=== PATIENT | male | born 1950 | race Asian ===

== ENCOUNTER 2019-11-12 15:15 | Outpatient (CLI) | payer MEDICARE, SELFPAY ==
[2019-11-12 16:23] LABS: Basophils Percent Auto 0.5 % (0.2-1.2); Eosinophils Absolute Auto 0.2 K/mm3 (0-0.3); Eosinophils Percent Auto 3.6 % (0-4.4); Hematocrit 42.1 % (42.0-52.0); Hemoglobin 14.3 g/dL (14.0-18.0); Immature Granulocyte Absolute 0.02 K/mm3 (0.00-0.031); Immature Granulocyte Percent A 0.3 % (0-0.5); Lymphocytes Absolute Auto 1.68 K/mm3 (0.9-3.2); Lymphocytes Percent Auto 27.9 % (18.3-44.2); Mean Corpuscular Hemoglobin 30.3 pg (26-34); Mean Corpuscular Volume 89.2 fl (80-100); Mean Platelet Volume 9.6 fl (7.4-10.4); Monocytes Absolute Auto 0.6 K/mm3 (0.1-0.6); Monocytes Percent Auto 9.3 % (2.6-8.5); Neutrophils Absolute Auto 3.5 K/mm3 (1.3-6.7); Neutrophils Percent Auto 58.4 % (45.5-73.1); Platelet Count Result 148 k/mm3 (150-375); Red Blood Count 4.72 M/mm3 (4.6-6.20); Red Cell Distribution Width 13.7 % (11.5-14.5)
[2019-11-12 17:26] LABS: Alanine Aminotransferase 47 U/L (4-50); Albumin Level 4.2 g/dL (3.5-5.1); Alkaline Phosphatase 70 U/L (38-126); Aspartate Amino Transferase 46 U/L (17-59); Bilirubin,Total 0.9 mg/dL (0.2-1.3); Blood Urea Nitrogen 25 mg/dL (9-20); Calcium 8.9 mg/dL (8.4-10.2); Carbon Dioxide 30 mmol/L (22-30); Chloride 104 mmol/L (98-107); Cholesterol 82 mg/dL (0-200); Estimated Glomerular Filt Rate 60; Glucose 117 mg/dL (75-110); HDL Direct 37 mg/dL; Potassium 4.2 mmol/L (3.4-5.0); Sodium 140 mmol/L (137-145); Triglycerides 209 mg/dL (<150)
[2019-11-12 17:34] LABS: Hemoglobin A1C 6.2 % (<5.7)
[2019-11-12 17:52] LABS: LDL Cholesterol Direct < 30 mg/dL
[2019-11-12 17:57] LABS: Prostate Specific Antigen 0.5 ng/mL (< OR = 4.0)
== END 2019-11-12 15:16 | disposition home or self-care (01) ==
PROVIDERS: PCP Family Medicine; Referring Provider Internal Medicine Cardiovascular Disease; Visit Provider Family Medicine
DX: Z12.5 Encounter for screening for malignant neoplasm of prostate (principal); I10 Essential (primary) hypertension; E11.9 Type 2 diabetes mellitus without complications; I25.10 Atherosclerotic heart disease of native coronary artery without angina pectoris; Z79.02 Long term (current) use of antithrombotics/antiplatelets
CPT/HCPCS: 36415; 80053; 80061; 83036; 84153; 85025; G0103

== ENCOUNTER 2020-01-21 09:55 | Outpatient (CLI) | payer MEDICARE, SELFPAY ==
[2020-01-21 10:51] LABS: Basophils Percent Auto 0.5 % (0.2-1.2); Eosinophils Absolute Auto 0.2 K/mm3 (0-0.3); Eosinophils Percent Auto 3.3 % (0-4.4); Hematocrit 42.6 % (42.0-52.0); Hemoglobin 14.3 g/dL (14.0-18.0); Immature Granulocyte Absolute 0.04 K/mm3 (0.00-0.031); Immature Granulocyte Percent A 0.7 % (0-0.5); Lymphocytes Absolute Auto 1.35 K/mm3 (0.9-3.2); Lymphocytes Percent Auto 22.1 % (18.3-44.2); Mean Corpuscular HGB Conc 33.6 g/dl (32-36); Mean Corpuscular Volume 89.3 fl (80-100); Mean Platelet Volume 10.3 fl (7.4-10.4); Monocytes Absolute Auto 0.6 K/mm3 (0.1-0.6); Neutrophils Absolute Auto 3.9 K/mm3 (1.3-6.7); Neutrophils Percent Auto 64.4 % (45.5-73.1); Platelet Count Result 154 k/mm3 (150-375); Red Blood Count 4.77 M/mm3 (4.6-6.20); Red Cell Distribution Width 13.3 % (11.5-14.5); White Blood Count 6.1 K/mm3 (4.5-10.0)
[2020-01-21 11:12] LABS: Anion Gap 6 mmol/L (8-16); Blood Urea Nitrogen 18 mg/dL (9-20); Calcium 8.8 mg/dL (8.4-10.2); Carbon Dioxide 30 mmol/L (22-30); Chloride 105 mmol/L (98-107); Estimated Glomerular Filt Rate > 60; Glucose 86 mg/dL (75-110); Potassium 4.2 mmol/L (3.4-5.0); Sodium 141 mmol/L (137-145)
== END 2020-01-21 09:56 | disposition home or self-care (01) ==
LOC: ANHLAB 09:59
PROVIDERS: PCP Family Medicine
DX: I20.8 Other forms of angina pectoris (principal)
CPT/HCPCS: 36415; 80048; 85025

== ENCOUNTER 2020-07-22 07:06 | Outpatient (CLI) | payer MEDICARE, SELFPAY ==
[2020-07-22 07:30] LABS: Hematocrit 44.8 % (42.0-52.0); Hemoglobin 15.1 g/dL (14.0-18.0); Mean Corpuscular HGB Conc 33.7 g/dl (32-36); Mean Corpuscular Volume 88.9 fl (80-100); Mean Platelet Volume 9.2 fl (7.4-10.4); Platelet Count Result 151 k/mm3 (150-375); Red Blood Count 5.04 M/mm3 (4.6-6.20); Red Cell Distribution Width 13.7 % (11.5-14.5); White Blood Count 6.5 K/mm3 (4.5-10.0)
[2020-07-22 07:38] LABS: Hemoglobin A1C 5.9 % (<5.7)
[2020-07-22 07:41] LABS: Alanine Aminotransferase 47 U/L (4-50); Albumin Level 4.1 g/dL (3.5-5.1); Alkaline Phosphatase 47 U/L (38-126); Anion Gap 5 mmol/L (8-16); Aspartate Amino Transferase 50 U/L (17-59); Bilirubin,Total 1.2 mg/dL (0.2-1.3); Blood Urea Nitrogen 19 mg/dL (9-20); Carbon Dioxide 31 mmol/L (22-30); Chloride 106 mmol/L (98-107); Cholesterol 89 mg/dL (0-200); Estimated Glomerular Filt Rate 60; Glucose 108 mg/dL (75-110); HDL Direct 43 mg/dL; Potassium 4.4 mmol/L (3.4-5.0); Sodium 142 mmol/L (137-145); Triglycerides 118 mg/dL (<150)
[2020-07-22 07:55] LABS: LDL Cholesterol Direct < 30 mg/dL
== END 2020-07-22 07:07 | disposition home or self-care (01) ==
PROVIDERS: PCP Family Medicine; Referring Provider Internal Medicine Cardiovascular Disease; Visit Provider Family Medicine
DX: E78.2 Mixed hyperlipidemia (principal); R53.83 Other fatigue; E11.9 Type 2 diabetes mellitus without complications
CPT/HCPCS: 36415; 80053; 80061; 83036; 85027

== ENCOUNTER 2020-10-11 10:46 | Emergency (ER) | payer MEDICARE, SELFPAY ==
--- NOTE | ~2020-10-11 | CT_ITS ---
EXAMINATION: CT lumbar spine wo con DATE: 10/11/2020 12:02 INDICATION: Low back pain. TECHNIQUE: Computed tomography (CT) of the lumbar spine was performed without intravenous contrast. A utomated exposure control and iterative reconstruction technique were employed. The dose-length produ ct was 413.65 mGy-cm. COMPARISON: CT abdomen and pelvis 12/06/2013 FINDINGS: There is a 2.1 cm mass in right kidney. There is a 2.1 cm cyst in right kidney. There are l east 3 stones in right kidney measuring up to 3 mm. There is 5 degrees levocurvature of lumbar spine. There is 3 mm retrolisthesis of L2 on L3 and 4 mm anterolisthesis of L4 on L5. Vertebral body height s are normal. There is mildly decreased disc height at L3-L4 and L4-L5. The following disc levels are specifically discussed: L1-L2: The disc does not extend beyond the endplate margin. There is mild bilateral facet joint osteo arthritis. There is no neural foraminal stenosis. There is no central canal stenosis. L2-L3: The disc is bulging. There is mild bilateral facet joint osteoarthritis. There is moderate faustino ateral neural foraminal stenosis. There is mild central canal stenosis. L3-L4: The disc is bulging. There is moderate bilateral facet joint osteoarthritis. There is moderate right and mild left neural foraminal stenosis. There is mild central canal stenosis. L4-L5: The disc is bulging. There is severe bilateral facet joint osteoarthritis. There is moderate r ight and severe left neural foraminal stenosis. There is moderate central canal stenosis. L5-S1: The disc does not extend beyond the endplate margin. There is severe bilateral facet joint ost eoarthritis. There is mild bilateral neural foraminal stenosis. There is no central canal stenosis. IMPRESSION: 1. Moderate lumbar spondylosis. 2. 2.1 cm right kidney mass, which may be a neoplasm or hemorrhagic cyst. Abdomen CT without and with contrast is recommended. Reviewed, dictated and finalized at location A. IMPRESSION: 1. Moderate lumbar spondylosis. 2. 2.1 cm right kidney mass, which may be a neoplasm or hemorrhagic cyst. Abdom en CT without and with contrast is recommended.
[2020-10-11 10:52] VITALS: BP 124/74; PULSE 57; RESP 18; TEMP 36.4; O2SAT 100
--- NOTE | 2020-10-11 11:42 | ED.BACK ---
HPI - Back Pain/Injury General Chief Complaint: Back Pain/Injury Stated Complaint: back pain Time Seen by Provider: 10/11/20 11:28 Source: patient Mode of arrival: wheelchair Limitations: no limitations History of Present Illness HPI Narrative: This is a 70 year old male that presents to the ER for low back pain x 1 week. Reports intermittent history of trouble with his low back. Reports he has had a flare of symptoms over this last week. No recent injuries. Reports he felt okay when he woke up today, but he bent over to stretch and felt a sharp pain in his low back. Reports since then he has had a sharp pain in his low back with certain movements. He took Tylenol this morning around 815. This does help with his symptoms. Denies fever, dysuria, hematuria, saddle anesthesia, bowel/bladder incontinence, or weakness. Related Data Home Medications Medication Instructions Recorded Confirmed amlodipine 5 mg tablet 5 mg PO DAILY 07/08/19 07/08/19 aspirin 81 mg tablet,delayed 81 mg PO DAILY 07/08/19 07/08/19 release carvedilol 25 mg tablet 25 mg PO Q12H 07/08/19 07/08/19 olmesartan 5 mg tablet 5 mg PO BID tablet 07/08/19 07/08/19 rosuvastatin 40 mg tablet 40 mg PO DAILY 07/08/19 07/08/19 ticagrelor 90 mg tablet 90 mg PO Q12H 07/08/19 07/08/19 Allergies Allergy/AdvReac Type Severity Reaction Status Date / Time No Known Allergies Allergy Verified 07/29/20 08:51 Review of Systems Review of Systems: Narrative: CONSTITUTIONAL: Denies fever SKIN: Denies rash MUSCULOSKELETAL: Reports back pain, joint pain, and myalgia. NEUROLOGIC: Denies numbness, or weakness. All systems reviewed & are unremarkable except as noted in HPI and below PMFSH Past Medical History Medical History (Updated 10/11/20 @ 14:13 by Sofie Aponte PA-C) Coronary artery disease Hypertension Mixed hyperlipidemia Prediabetes Family History Family History Other Diabetes mellitus Family history of cardiovascular disease Family history of coronary artery disease Hypertension Social History Social History Smoking status: Never smoker Second hand tobacco smoke exposure: No Alcohol intake: current Gender identity (if verbalized by the patient): Male Exam Narrative: Exam Narrative: GENERAL: Well-appearing, well-nourished, and in no acute distress. HEAD: Normocephalic, atraumatic. EYES: EOMI. CHEST: Clear to auscultation. No respiratory distress. No wheezes rales or rhonchi HEART: Regular rate and rhythm. No murmur heard. Normal peripheral pulses. BACK: No midline spinal tenderness EXTREMITIES: Normal range of motion. No edema. Strength equal in bilateral lower extremities (5/5). Normal DP pulses. Normal sensation SKIN: Warm, dry, no rash. NEURO: No focal deficits. Alert and oriented x3. PSYCH: Normal mood and affect Course Consultations Consultation #1: Incidentally noted on CT scan was a 2.1 cm right kidney mass which could be neoplasm or hemorrhagic cyst recommend follow-up with a CT abdomen with and without contrast. Spoke with his primary to make her aware of this to ensure he has follow-up Date: 10/11/20 Time: 14:12 Vital Signs Vital signs: Vital Signs Temperature 97.6 F 10/11/20 10:52 Pulse Rate 57 L 10/11/20 10:52 Respiratory Rate 18 10/11/20 10:52 Blood Pressure 124/74 10/11/20 10:52 Pulse Oximetry 100 10/11/20 10:52 Temperature 97.6 F 10/11/20 10:52 Pulse Rate 51 L 10/11/20 13:52 Respiratory Rate 12 10/11/20 13:52 Blood Pressure 138/76 10/11/20 13:52 Pulse Oximetry 98 10/11/20 13:52 MDM - Back Pain/Injury MDM Narrative Medical decision making narrative: Patient presented to the emergency department for low back pain since this morning. No recent injury or trauma. He is afebrile and nontoxic-appearing. He is neurologically intact. CT scan of the lumbar
[2020-10-11] MEDS: diazePAM INJ (*CRX) 10 MG/2 ML SYRINGE 2 MG IM (12:14)
[2020-10-11 13:52] VITALS: BP 138/76; PULSE 51; RESP 12; O2SAT 98
[2020-10-11] MEDS: ACETAMINOPHEN 500 MG TABLET 1000 MG PO (14:15)
== END 2020-10-11 14:43 | disposition home or self-care (01) ==
PROVIDERS: Emergency Provider Emergency Medicine; PCP Family Medicine
DX: S39.012A Strain of muscle, fascia and tendon of lower back, initial encounter (principal); N28.89 Other specified disorders of kidney and ureter; I25.10 Atherosclerotic heart disease of native coronary artery without angina pectoris; I10 Essential (primary) hypertension; E78.2 Mixed hyperlipidemia; R73.03 Prediabetes; Z79.82 Long term (current) use of aspirin; X50.1XXA Overexertion from prolonged static or awkward postures, initial encounter
CPT/HCPCS: 72131; 96372; 99284; A9270; J3360

== ENCOUNTER 2020-10-16 10:16 | Outpatient (CLI) | payer MEDICARE, SELFPAY ==
--- NOTE | ~2020-10-16 | CT_ITS ---
EXAMINATION: CT abdomen wo/w con EXAM DATE: 10/16/2020 10:47 INDICATION: N28.89 - Other specified disorders of kidney and ureter. Renal mass. TECHNIQUE: Spiral CT of the abdomen was performed without and then with intravenous injection of 100 mL Omnipaque 350. Axial, coronal and sagittal images of the abdomen were reviewed. The dose-length product (DLP) for this examination was 475.51 mGy-cm. The exposure was tailored according to patien t size (auto mA exposure control), and iterative reconstruction (ASIR) was used as additional dose re duction technique. Comparison is made to prior examination from 12/06/2013. FINDINGS: There is enhancing bilobulated mass at the superior pole of the right kidney, one lobulatio n demonstrating a cystic component and the other solid enhancing component. 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 No evidence of this mass on prior CT abdomen 2013. The liver, splee n, adrenal glands and pancreas are unremarkable. There are gallstones within an otherwise unremarkab le gallbladder. No evidence of obstructive biliary disease. Several punctate bilateral calyceal sto tory. No proximal ureteral stones or hydronephrosis. There is no retroperitoneal lymphadenopathy. Th ere is moderate scattered arteriosclerotic disease. There is mild scattered colonic diverticulosis. There is no adjacent inflammatory change to suggest diverticulitis. The stomach and small bowel are unremarkable. There is expected amount of colonic st ool. No free intraperitoneal gas. The heart is normal in size. There are no pericardial or pleur al effusions. The lung bases are unremarkable. There are no osteoblastic or osteolytic lesions iden tified. IMPRESSION: 1. 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 2. Punctate bilateral nephrolithiasis. 3. Scattered colonic diverticulosis. Reviewed, dictated and finalized at location B.
[2020-10-16 10:41] LABS: Estimated Glomerular Filt Rate 54
== END 2020-10-16 10:17 | disposition home or self-care (01) ==
PROVIDERS: PCP Family Medicine; Visit Provider Family Medicine
DX: N28.89 Other specified disorders of kidney and ureter (principal); N20.0 Calculus of kidney; K57.30 Diverticulosis of large intestine without perforation or abscess without bleeding
CPT/HCPCS: 74170; Q9967

== ENCOUNTER 2020-11-13 08:11 | Outpatient (CLI) | payer MEDICARE, SELFPAY ==
[2020-11-13 10:09] LABS: Prostate Specific Antigen 0.7 ng/mL (< OR = 4.0)
== END 2020-11-13 08:12 | disposition home or self-care (01) ==
PROVIDERS: PCP Family Medicine
DX: Z12.5 Encounter for screening for malignant neoplasm of prostate (principal)
CPT/HCPCS: 36415; 84153; G0103

== ENCOUNTER 2021-02-20 14:07 | Emergency (ER) | payer MEDICARE, SELFPAY ==
[2021-02-20] VITALS (19 sets, daily range): BP systolic 120–145; BP diastolic 72–96; PULSE 65–80; RESP 14–35; TEMP 36.6; O2SAT 97–100
--- NOTE | ~2021-02-20 | XR_ITS ---
EXAMINATION: XR chest 2V DATE: 02/20/2021 14:39 INDICATION: Weakness TECHNIQUE: frontal and lateral views of the chest were obtained. COMPARISON: Chest radiograph dated 04/20/18 FINDINGS: The lungs remain clear with no focal airspace opacities, pulmonary edema, pleural effusion or pneumot horax. The cardiomediastinal silhouette is normal. Median sternotomy wires and mediastinal surgical c lips are seen, likely from prior coronary artery bypass grafting. There is also been coronary artery stenting. Calcified gallstones in the right upper quadrant. IMPRESSION: 1. No acute cardiopulmonary disease. 2. Cholelithiasis. Reviewed, dictated and finalized at location A.
--- NOTE | ~2021-02-20 | CT_ITS ---
EXAMINATION: CT abdomen pelvis w con DATE: 02/20/2021 18:25 INDICATION: Generalized weakness post right nephrectomy one week prior TECHNIQUE: Computed tomography (CT) of the abdomen and pelvis was performed with 100 mL Omnipaque-350 intravenous contrast. Automated exposure control and iterative reconstruction technique were employe d. The dose-length product was 311.81 mGy-cm. COMPARISON: 10/16/2020 and 12/06/2013 FINDINGS: Mild bibasilar atelectasis. Heart size is normal with right atrial enlargement. Atherosclerotic coron everette artery disease with likely stenting at the right coronary and circumflex coronary arteries. Media n sternotomy wires suggesting likely coronary artery bypass grafting. No pericardial or pleural effus ion. 1.8 cm avidly enhancing lesion in segment IVb of the liver corresponding to a low density lesion on an earlier noncontrast study dated 12/06/2013 most consistent with a flash filling hemangioma. Mul tiple calcified gallstones in the dependent aspect of the normal partially decompressed gallbladder. Spleen, pancreas and bilateral adrenal glands are normal. Postoperative change of recent partial righ t nephrectomy with cortical defect and suture line at the upper pole of the right kidney. There is a heterogeneous attenuation likely hematoma which at the nephrectomy bed measures approximately 5.8 x 5 .5 x 6.3 cm. There is additional small amount of blood tracking caudally along the posterior right pe rinephric space where there are also few foci of likely residual postoperative gas and small amount o f blood at the inferior right paracolic gutter. 2.4 cm cyst at the lower pole of the right kidney. 1 mm nonobstructing stone at a middle calyx of the normal left kidney. There is mild to moderate coloni c diverticulosis with a sigmoid and descending colon predominance. There is no adjacent inflammatory change to suggest diverticulitis. Small bowel and appendix are normal. Bladder is normal. There are some postoperative changes along the anterior abdominal wall. No pathologically enlarged abdominal or pelvic lymphadenopathy. Moderate lumbar spondylosis. IMPRESSION: 1. Postoperative changes of recent partial nephrectomy involving the upper pole of the right kidney w ith associated moderate sized right perinephric/retroperitoneal hematoma. 2. Nonobstructing 1 mm left renal stone. 3. Mild to moderate diverticulosis. Reviewed, dictated and finalized at location A. IMPRESSION: 1. Postoperative changes of recent partial nephrectomy involving the upper pole of the right kidney with associated moderate sized right perinephric/retroperi toneal hematoma. 2. Nonobstructing 1 mm left renal stone. 3. Mild to moderate diverticulosis.
--- NOTE | 2021-02-20 14:26 | ECG_ITS ---
Measurements Intervals [place] Rate: 61 P: 74 WI: 170 QRS: 32 QRSD: 101 T: 44 QT: 419 QTc: 423 Interpretive Statements SINUS RHYTHM POSSIBLE LEFT ATRIAL ENLARGEMENT INCOMPLETE RIGHT BUNDLE BRANCH BLOCK BASELINE ARTIFACT- V2 BORDERLINE ECG Electronically Signed On 02-20-2021 15:11:24 CDT by William Osorio D.O.
[2021-02-20 15:19] LABS: Basophils Percent Auto 0.3 % (0.2-1.2); Eosinophils Absolute Auto 0.4 K/mm3 (0-0.3); Hematocrit 33.9 % (42.0-52.0); Hemoglobin 11.4 g/dL (14.0-18.0); Immature Granulocyte Percent A 2.2 % (0-0.5); Lymphocytes Absolute Auto 0.95 K/mm3 (0.9-3.2); Lymphocytes Percent Auto 10.5 % (18.3-44.2); Mean Corpuscular HGB Conc 33.6 g/dl (32-36); Mean Corpuscular Hemoglobin 30.2 pg (26-34); Mean Corpuscular Volume 89.7 fl (80-100); Mean Platelet Volume 8.6 fl (7.4-10.4); Monocytes Absolute Auto 0.8 K/mm3 (0.1-0.6); Monocytes Percent Auto 9.2 % (2.6-8.5); Neutrophils Absolute Auto 6.7 K/mm3 (1.3-6.7); Neutrophils Percent Auto 73.8 % (45.5-73.1); Platelet Count Result 237 k/mm3 (150-375); Red Blood Count 3.78 M/mm3 (4.6-6.20); Red Cell Distribution Width 12.7 % (11.5-14.5)
[2021-02-20 15:26] LABS: Alanine Aminotransferase 45 U/L (4-50); Alkaline Phosphatase 55 U/L (38-126); Anion Gap 6 mmol/L (8-16); Aspartate Amino Transferase 49 U/L (17-59); Bilirubin,Total 2.1 mg/dL (0.2-1.3); Blood Urea Nitrogen 42 mg/dL (9-20); Calcium 8.8 mg/dL (8.4-10.2); Carbon Dioxide 30 mmol/L (22-30); Chloride 101 mmol/L (98-107); Estimated Glomerular Filt Rate 54; Glucose 126 mg/dL (65-110); Potassium 4.8 mmol/L (3.4-5.0); Sodium 137 mmol/L (137-145)
--- NOTE | 2021-02-20 15:49 | ED.WEAKNESS ---
HPI - Weakness General Chief complaint: Weakness Stated complaint: weakness Time Seen by Provider: 02/20/21 14:31 Source: patient and family Mode of arrival: EMS Limitations: no limitations History of Present Illness HPI Narrative: 71-year-old male postop day 8 status post partial nephrectomy went for a walk this morning and when he was done with his walk was sitting in the sun. After that he had what seemed like a presyncopal episode with confusion. Patient states he had breakfast--no nausea no vomiting. Patient denies cough denies, chest pain,denies palpitations. No fever no abdominal pain, no hematuria, no dysuria, no flank pain. Patient does have some discharge from the midline laparoscopic site and some surrounding erythema in each of the other lap sites. Patient does complain of decreased appetite since surger and oer family only ate breakfast yesterday. 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 MD Complaint: generalized weakness and lack of energy Onset (ago): hour(s) (1) Duration: intermittent Related Data Home Medications Medication Instructions Recorded Confirmed amlodipine 5 mg tablet 5 mg PO DAILY 07/08/19 07/08/19 aspirin 81 mg tablet,delayed 81 mg PO DAILY 07/08/19 07/08/19 release carvedilol 25 mg tablet 25 mg PO Q12H 07/08/19 07/08/19 olmesartan 5 mg tablet 5 mg PO BID tablet 07/08/19 07/08/19 rosuvastatin 40 mg tablet 40 mg PO DAILY 07/08/19 07/08/19 ticagrelor 90 mg tablet 90 mg PO Q12H 07/08/19 07/08/19 Allergies Allergy/AdvReac Type Severity Reaction Status Date / Time No Known Allergies Allergy Verified 10/16/20 14:38 Review of Systems Review of Systems: CONSTITUTIONAL: no fever, decreased appetite since suregery, or episode of confusion prior to arrival EYES: no vision changes, no eye pain ENT: no rhinorrhea, no sore throat, no difficulty swallowing CARDIOVASCULAR: no chest pain, no leg edema, no palpitations RESPIRATORY: no cough, no shortness of breath, no hemoptysis GASTROINTESTINAL: Intermittent bandlike abdominal pain, none currently. Decreased appetite, no nausea no vomiting no diarrhea GENITOURINARY: no flank pain, no dysuria, no hematuria SKIN: no rash, no jaundice; incisions intact; MUSCULOSKELETAL: no back pain, no trauma. NEUROLOGIC: No headache, no dizziness, no focal weakness PSYCHIATRIC: No hallucinations, no suicidal ideation [facility] Past Medical History Medical History Coronary artery disease Hypertension Lumbar spondylosis Mixed hyperlipidemia Prediabetes Renal mass Surgical History Surgical History History of coronary artery stent placement (~2019) 2017 & 2019 History of knee replacement (~2010) right Hx of heart bypass surgery (~2011) Family History Family History Other Diabetes mellitus Family history of cardiovascular disease Family history of coronary artery disease Hypertension Social History Social History Smoking status: Never smoker Second hand tobacco smoke exposure: No Alcohol intake: current Alcohol use details: 0ccasionally Substance use: never Substance use type: does not use Gender identity (if verbalized by the patient): Male Exam Narrative: General: alert, afebrile, answering all questions appropriately Head: normocephalic, atraumatic Eyes: EOMI bilaterally, anicteric, no injection ENT: moist mucous membranes, oropharynx patent, no rhinorrhea Neck: supple, trachea midline, no JVD Chest: equal chest rise bilaterally, no chest wall trauma noted Lungs: clear to auscultation bilaterally, respirations unlabored CV: regular rate, no LILIANE B, calf size equal bilaterally Abd: soft, non-distended, non-tender, no rebound, no gaurding, negative M
[2021-02-20] MEDS: SODIUM CHLORIDE 0.9% IV 1,000 ML 999 ML IV CONT ×2 (16:05→18:32)
[2021-02-20 16:49] LABS: Troponin I < 0.012 ng/mL (0.000-0.034)
[2021-02-20 17:37] LABS: Add Urine Microscopic? YES; Appearance Urine Clear (Clear); Bilirubin Urine Negative (Negative); Blood Urine Negative (Negative); Color Urine Yellow (Yellow); Glucose Urine UA Negative (Negative); Ketones Urine Negative (Negative); Leukocyte Esterase Ur Negative LEU/UL (Negative); Nitrate Urine Negative (Negative); Protein Urine Negative (Negative); Specific Grav Ur 1.015 (1.001-1.035); WBC Urine 0-3 /hpf
== END 2021-02-20 19:50 | disposition home or self-care (01) ==
PROVIDERS: Emergency Medicine; Emergency Provider Emergency Medicine; PCP Family Medicine
DX: E86.0 Dehydration (principal); Z90.5 Acquired absence of kidney; I25.10 Atherosclerotic heart disease of native coronary artery without angina pectoris; I10 Essential (primary) hypertension; E78.2 Mixed hyperlipidemia; R73.03 Prediabetes; M47.816 Spondylosis without myelopathy or radiculopathy, lumbar region; Z95.5 Presence of coronary angioplasty implant and graft; Z96.651 Presence of right artificial knee joint; R94.31 Abnormal electrocardiogram [ECG] [EKG]; I45.10 Unspecified right bundle-branch block; K80.20 Calculus of gallbladder without cholecystitis without obstruction; K57.90 Diverticulosis of intestine, part unspecified, without perforation or abscess without bleeding; N20.0 Calculus of kidney; Z79.82 Long term (current) use of aspirin
CPT/HCPCS: 36415; 71046; 74177; 80053; 81001; 84484; 85025; 93005; 99284; J7030; Q9967

== ENCOUNTER 2021-08-27 06:46 | Outpatient (CLI) | payer MEDICARE, SELFPAY ==
[2021-08-27 07:08] LABS: Hematocrit 43.2 % (42.0-52.0); Hemoglobin 14.8 g/dL (14.0-18.0); Mean Corpuscular HGB Conc 34.3 g/dl (32-36); Mean Corpuscular Hemoglobin 30.3 pg (26-34); Mean Corpuscular Volume 88.3 fl (80-100); Mean Platelet Volume 9.4 fl (7.4-10.4); Platelet Count Result 148 k/mm3 (150-375); Red Blood Count 4.89 M/mm3 (4.6-6.20); Red Cell Distribution Width 13.7 % (11.5-14.5); White Blood Count 5.5 K/mm3 (4.5-10.0)
[2021-08-27 07:16] LABS: Alanine Aminotransferase 34 U/L (4-50); Alkaline Phosphatase 59 U/L (38-126); Anion Gap 6 mmol/L (8-16); Aspartate Amino Transferase 44 U/L (17-59); Bilirubin,Total 1.3 mg/dL (0.2-1.3); Blood Urea Nitrogen 16 mg/dL (9-20); Calcium 8.4 mg/dL (8.4-10.2); Carbon Dioxide 29 mmol/L (22-30); Chloride 104 mmol/L (98-107); Cholesterol 104 mg/dL (0-200); Estimated Glomerular Filt Rate > 60; Glucose 170 mg/dL (65-110); HDL Direct 34 mg/dL; Potassium 3.9 mmol/L (3.4-5.0); Sodium 139 mmol/L (137-145); Triglycerides 157 mg/dL (<150)
[2021-08-27 07:27] LABS: LDL Cholesterol Direct 39 mg/dL
[2021-08-30 10:18] LABS: Hemoglobin A1C 5.8 % (<5.7)
== END 2021-08-27 06:47 | disposition home or self-care (01) ==
LOC: ANHLAB 06:48
PROVIDERS: PCP Family Medicine; Visit Provider Family Medicine
DX: E78.2 Mixed hyperlipidemia (principal); D64.9 Anemia, unspecified; Z51.81 Encounter for therapeutic drug level monitoring; Z79.899 Other long term (current) drug therapy; I10 Essential (primary) hypertension
CPT/HCPCS: 36415; 80053; 80061; 83036; 85027

== ENCOUNTER 2021-09-15 14:19 | Outpatient (CLI) | payer MEDICARE, SELFPAY | END 2021-09-15 14:20 | disposition home or self-care (01) | LOC: ANHAUDASC 14:22 | PROVIDERS: PCP Family Medicine; Visit Provider Family Medicine | DX: H91.90 Unspecified hearing loss, unspecified ear (principal) | CPT/HCPCS: 92557; 92567 ==

== ENCOUNTER 2021-09-30 00:21 | Day surgery (SDC) | payer MEDICARE, SELFPAY ==
[2021-09-22 15:43] VITALS: BMI 25.1
--- NOTE | 2021-09-29 15:12 | PM.HPGS ---
History of Present Illness History of Present Illness Consent: Risks, benefits, and alternatives have been discussed and questions answered. Patient agrees to proceed with procedure. Chief complaint: neoplasm screening Narrative: Nirmal Rivers is a 71 year old male was referred for colon cancer screening. He did have a colonoscopy about 15 years ago that was unremarkable. Review of Systems Review of Systems: All systems reviewed & are unremarkable except as noted in HPI and below PMFSH Past Medical History Medical History Coronary artery disease Hearing loss Hypertension Lumbar spondylosis Mixed hyperlipidemia Prediabetes Renal mass Surgical History Surgical History History of coronary artery stent placement (~2019) 2017 & 2019 History of knee replacement (~2010) right History of nephrectomy 03/04 Hx of heart bypass surgery (~2011) Family History Family History Other Diabetes mellitus Family history of cardiovascular disease Family history of coronary artery disease Hypertension Social History Social History Smoking status: Never smoker Second hand tobacco smoke exposure: No Alcohol intake: never Alcohol use details: 0ccasionally Substance use: never Substance use type: does not use Living arrangements: with family Gender identity (if verbalized by the patient): Male Spiritual care concerns: No Meds Home Medications and Allergies Home Medications Medication Instructions Recorded Confirmed Type amlodipine 5 mg tablet 5 mg PO DAILY 07/08/19 09/30/21 History aspirin 81 mg tablet,delayed 81 mg PO DAILY 07/08/19 09/30/21 History release carvedilol 25 mg tablet 25 mg PO Q12H 07/08/19 09/30/21 History olmesartan 5 mg tablet 5 mg PO BID tablet 07/08/19 09/30/21 History rosuvastatin 40 mg tablet 40 mg PO DAILY 07/08/19 09/30/21 History betamethasone valerate 0.1 % 1 applic TOPICAL DAILY PRN #45 g 08/24/21 09/30/21 Rx topical ointment clotrimazole-betamethasone 1 1 applic TOPICAL BID #15 g 08/25/21 09/30/21 Rx %-0.05 % topical cream clopidogrel [Plavix] 75 mg PO DAILY 09/22/21 09/30/21 History tamsulosin 0.4 mg PO DAILY 09/22/21 09/30/21 History Allergies Allergy/AdvReac Type Severity Reaction Status Date / Time No Known Allergies Allergy Verified 09/22/21 15:45 Exam Resp: Auscultation: clear to auscultation bilaterally Cardio: Rate: regular rate Rhythm: regular rhythm GI: GI Palp: Yes Soft to palpation and No Tenderness to palpation present (GI) Assessment and Plan Assessment and plan (1) Colon cancer screening: Code(s): Z12.11 - Encounter for screening for malignant neoplasm of colon Status: Acute Assessment and Plan: Colonoscopy with possible biopsy or polypectomy or cautery or injection of substances.
[2021-09-30 07:12] VITALS: BP 109/67; PULSE 51; RESP 18; TEMP 36.3; O2SAT 100; BMI 24.5
[2021-09-30] MEDS: LACTATED RINGERS 1,000 ML 150 ML IV CONT (07:34)
--- NOTE | 2021-09-30 07:56 | WPDANESEPPF ---
Anes - Initial Pre Proc Eval Procedure: Operation Date: 09/30/21 08:30 Proposed Procedures p Screening Colonoscopy - Romero Maria MD Date/Time: 09/30/21 07:56 Surgeon: Romero Maria MD Pre Op Diagnosis: neoplasm screening Patient Data Age: 71 Gender: M Height: 1.7 m Weight: 70.9 kg Last Vital Signs Temp 36.3 C L 09/30/21 07:12 Pulse 51 L 09/30/21 07:12 Resp 18 09/30/21 07:12 BP 109/67 09/30/21 07:12 Pulse Ox 100 09/30/21 07:12 Allergies Allergy/AdvReac Type Severity Reaction Status Date / Time No Known Allergies Allergy Verified 09/22/21 15:45 Home Medications Medication Instructions Recorded Confirmed Type amlodipine 5 mg tablet 5 mg PO DAILY 07/08/19 09/30/21 History aspirin 81 mg tablet,delayed 81 mg PO DAILY 07/08/19 09/30/21 History release carvedilol 25 mg tablet 25 mg PO Q12H 07/08/19 09/30/21 History olmesartan 5 mg tablet 5 mg PO BID tablet 07/08/19 09/30/21 History rosuvastatin 40 mg tablet 40 mg PO DAILY 07/08/19 09/30/21 History betamethasone valerate 0.1 % 1 applic TOPICAL DAILY PRN #45 g 08/24/21 09/30/21 Rx topical ointment clotrimazole-betamethasone 1 1 applic TOPICAL BID #15 g 08/25/21 09/30/21 Rx %-0.05 % topical cream clopidogrel [Plavix] 75 mg PO DAILY 09/22/21 09/30/21 History tamsulosin 0.4 mg PO DAILY 09/22/21 09/30/21 History Patient hx anesthesia problems: none Family hx anesthesia problems: none Results Review: All pre-operative results and documents have been reviewed as part of the pre-operative evaluation. [facility] Past Medical History Medical History (Updated 09/16/21 @ 12:00 by Zofia Delacruz MD) Coronary artery disease Hearing loss Hypertension Lumbar spondylosis Mixed hyperlipidemia Prediabetes Renal mass Surgical History Surgical History (Updated 08/24/21 @ 14:35 by Kalli Avilez CMA) History of coronary artery stent placement (~2019) 2017 & 2019 History of knee replacement (~2010) right History of nephrectomy 03/04 Hx of heart bypass surgery (~2011) Family History Family History Other Diabetes mellitus Family history of cardiovascular disease Family history of coronary artery disease Hypertension Social History Social History Smoking status: Never smoker Second hand tobacco smoke exposure: No Alcohol intake: never Alcohol use details: 0ccasionally Substance use: never Substance use type: does not use Living arrangements: with family Gender identity (if verbalized by the patient): Male Spiritual care concerns: No Anes - Eval Final PreProcedure Day of Procedure 09/30/21 07:56 Patient weight: normal Heart: regular rate and rhythm Lungs: clear to auscultation and normal air movement Airway: Mallampati scale class II Neurological: alert and oriented Last oral intake: >/= 8 hours ASA classification: III Emergent: no Anesthetic plan: proceed Anesthesia type and monitoring: general GIVS Results Review: All pre-operative results and documents have been reviewed as part of the pre-operative evaluation. Informed Consent: The patient's anesthetic plan and its attendant risks and benefits were discussed with the patient/family/POA. Questions were solicited and answers provided to the satisfaction of the patient/family/POA.
[2021-09-30 08:48] VITALS: BP 98/67; PULSE 58; RESP 16; O2SAT 100
[2021-09-30 08:58] VITALS: BP 102/68; PULSE 55; RESP 16; O2SAT 100
[2021-09-30 09:08] VITALS: BP 119/77; PULSE 52; RESP 20; O2SAT 100
--- NOTE | 2021-09-30 09:17 | SUR.OPER ---
Rn verified with Dr. Maria the collection of retum colon polyp, descending colon polyp, and 2 ascending colon polyps
== END 2021-09-30 09:21 | disposition home or self-care (01) ==
PROVIDERS: PCP Family Medicine; Visit Provider Internal Medicine Gastroenterology
PROC: 0DJD8ZZ Inspection of Lower Intestinal Tract, Via Natural or Artificial Opening Endoscopic (ICD-10-PCS; CPT 45378; principal; 2021-09-30 08:30)
DX: Z12.11 Encounter for screening for malignant neoplasm of colon (principal); K57.30 Diverticulosis of large intestine without perforation or abscess without bleeding; D12.4 Benign neoplasm of descending colon; D12.2 Benign neoplasm of ascending colon; D12.8 Benign neoplasm of rectum; I10 Essential (primary) hypertension; I25.10 Atherosclerotic heart disease of native coronary artery without angina pectoris; E78.2 Mixed hyperlipidemia; R73.03 Prediabetes; M47.816 Spondylosis without myelopathy or radiculopathy, lumbar region; Z79.82 Long term (current) use of aspirin; Z95.5 Presence of coronary angioplasty implant and graft; Z90.5 Acquired absence of kidney; Z98.1 Arthrodesis status
CPT/HCPCS: 45385; 88305; J2704; J7120

== ENCOUNTER 2022-04-20 14:19 | Outpatient (CLI) | payer MEDICARE, SELFPAY ==
--- NOTE | ~2022-04-20 | DEXA_ITS ---
Bone Density Report Name: GRAEME REYES Age: 72 Sex: Male Ethnicity: Date of : 1950 Indication: screening for osteoporosis; prior fracture; Referring Provider: JENSEN PIMENTEL Study: Bone densitometry was performed. Exam Date: April 20, 2022 Accession number: [id number] Bone Density: Region BMD T-score Z-score Classification AP Spine(L1-L4) 1.166 0.7 1.7 Normal Femoral Neck (Left) 0.837 -0.7 0.6 Normal Total Hip (Left) 1.115 0.5 1.3 Normal Femoral Neck (Right) 0.749 -1.3 0.0 Osteopenia Total Hip (Right) 1.022 -0.1 0.7 Normal Total Hip Mean 1.068 0.2 1.0 Normal World Health Organization criteria for BMD impression classify patients as: Normal (T-score at or above -1.0), Osteopenia (T-score between -1.0 and -2.5), or Osteoporosis (T-score at or below -2.5). 10-year Fracture Risk(1): Major Osteoporotic Fracture 5.7% Hip Fracture 1.4% Reported Risk Factors: [place] (), Neck BMD=0.749, BMI=24.3, previous fracture (1) FRAX(R) Version 3.08. Fracture probability calculated for an untreated patient. Fracture probability may be lower if the patient has received treatment. Clinical Information Provided by Patient: Has had a low trauma fracture Has used the following medications: Vitamin D Patient maximum height was 67 Drinks caffeinated beverages Impression: The patient has low bone mass, based on the Right Femoral Neck T-score. The patient has an estimated ten-year risk of hip fracture of 1.4% and an estimated ten-year risk of major fracture of 5.7%, based on the WHO FRAX algorithm. The patient has risk factors, including: previous fracture. Discussion: BONE DENSITY IS LOW AT ONE OR MORE SKELETAL SITES. This patient's lowest T-score is low at one or more skeletal sites. It meets the World Health Organization's (WHO) criteria for ?low bone mass? (T-score between -1.0 and -2.5). The patient's 10-year risk of fracture as calculated by FRAX is less than the threshold where pharmacological therapy is recommended by the National Osteoporosis Foundation (NOF). However, all treatment decisions require clinical judgment and consideration of individual patient factors, including patient preferences, comorbidities, previous drug use, risk factors not captured in the FRAX model (e.g., frailty, falls, vitamin D deficiency, increased bone turnover, interval significant decline in bone density) and possible under or overestimation of fracture risk by FRAX. The patient should follow a healthful lifestyle (good nutrition with adequate calcium and vitamin D, and appropriate weight-bearing exercise). Follow-Up: Consider repeating this study in 2 to 3 years to reassess this patient's status, or sooner if there is some new clinical indication. Reported by: [facility] on 04/20/2022 2:
== END 2022-04-20 14:20 | disposition home or self-care (01) ==
PROVIDERS: PCP Family Medicine; Visit Provider Family Medicine
DX: S92.309A Fracture of unspecified metatarsal bone(s), unspecified foot, initial encounter for closed fracture (principal); E55.9 Vitamin D deficiency, unspecified; M85.851 Other specified disorders of bone density and structure, right thigh
CPT/HCPCS: 77080

== ENCOUNTER 2022-09-06 07:48 | Outpatient (CLI) | payer MEDICARE, SELFPAY ==
[2022-09-06 08:21] LABS: Hematocrit 41.8 % (42.0-52.0); Hemoglobin 13.5 g/dL (14.0-18.0); Mean Corpuscular HGB Conc 32.3 g/dl (32-36); Mean Corpuscular Hemoglobin 27.4 pg (26-34); Mean Platelet Volume 9.8 fl (7.4-10.4); Platelet Count Result 195 k/mm3 (150-375); Red Blood Count 4.92 M/mm3 (4.6-6.20); Red Cell Distribution Width 14.3 % (11.5-14.5); White Blood Count 6.4 K/mm3 (4.5-10.0)
[2022-09-06 08:31] LABS: Alanine Aminotransferase 29 U/L (6-50); Albumin Level 4.4 g/dL (3.5-5.1); Alkaline Phosphatase 51 U/L (38-126); Anion Gap 4 mmol/L (8-16); Aspartate Amino Transferase 32 U/L (17-59); Bilirubin,Total 1.2 mg/dL (0.2-1.3); Blood Urea Nitrogen 15 mg/dL (9-20); Carbon Dioxide 33 mmol/L (22-30); Chloride 103 mmol/L (98-107); Cholesterol 94 mg/dL (0-200); Estimated Glomerular Filt Rate 59; Glucose 126 mg/dL (65-110); HDL Direct 37 mg/dL; Potassium 4.6 mmol/L (3.4-5.0); Sodium 140 mmol/L (137-145); Triglycerides 117 mg/dL (<150)
[2022-09-06 08:45] LABS: LDL Cholesterol Direct 36 mg/dL
[2022-09-06 08:55] LABS: Hemoglobin A1C 6.1 % (<5.7)
[2022-09-06 09:01] LABS: Prostate Specific Antigen 0.7 ng/mL (< OR = 4.0)
== END 2022-09-06 07:49 | disposition home or self-care (01) ==
PROVIDERS: PCP Family Medicine; Visit Provider Family Medicine
DX: R53.83 Other fatigue (principal); E11.9 Type 2 diabetes mellitus without complications; E78.2 Mixed hyperlipidemia; Z12.5 Encounter for screening for malignant neoplasm of prostate
CPT/HCPCS: 36415; 80053; 80061; 83036; 84153; 85027; G0103

== ENCOUNTER 2023-09-11 07:26 | Outpatient (CLI) | payer MEDICARE, SELFPAY ==
[2023-09-11 08:32] LABS: Basophils Percent Auto 0.6 % (0.2-1.2); Eosinophils Absolute Auto 0.3 K/mm3 (0-0.3); Hematocrit 40.9 % (42.0-52.0); Hemoglobin 12.7 g/dL (14.0-18.0); Immature Granulocyte Absolute 0.03 K/mm3 (0.00-0.031); Immature Granulocyte Percent A 0.5 % (0-0.5); Lymphocytes Percent Auto 25.9 % (18.3-44.2); Mean Corpuscular HGB Conc 31.1 g/dl (32-36); Mean Corpuscular Hemoglobin 24.5 pg (26-34); Mean Platelet Volume 9.8 fl (7.4-10.4); Monocytes Absolute Auto 0.6 K/mm3 (0.1-0.6); Monocytes Percent Auto 9.1 % (2.6-8.5); Neutrophils Absolute Auto 3.6 K/mm3 (1.3-6.7); Neutrophils Percent Auto 58.9 % (45.5-73.1); Platelet Count Result 197 k/mm3 (150-375); Red Blood Count 5.18 M/mm3 (4.6-6.20); Red Cell Distribution Width 18.2 % (11.5-14.5); White Blood Count 6.2 K/mm3 (4.5-10.0)
[2023-09-11 08:41] LABS: Hemoglobin A1C 6.4 % (<5.7)
[2023-09-11 08:47] LABS: Alanine Aminotransferase 28 U/L (6-50); Albumin Level 4.4 g/dL (3.5-5.1); Alkaline Phosphatase 63 U/L (38-126); Anion Gap 9 mmol/L (4-12); Aspartate Amino Transferase 33 U/L (17-59); Bilirubin,Total 1.1 mg/dL (0.2-1.3); Blood Urea Nitrogen 24 mg/dL (9-20); Calcium 9.3 mg/dL (8.4-10.2); Carbon Dioxide 24 mmol/L (22-30); Chloride 108 mmol/L (98-107); Cholesterol 100 mg/dL (0-200); Estimated Glomerular Filt Rate 54; Glucose 127 mg/dL (65-110); HDL Direct 43 mg/dL; Potassium 4.4 mmol/L (3.4-5.0); Sodium 141 mmol/L (137-145); Triglycerides 77 mg/dL (<150)
[2023-09-11 08:57] LABS: Iron 44 ug/dL (49-181)
[2023-09-11 08:58] LABS: LDL Cholesterol Direct 47 mg/dL
[2023-09-11 09:05] LABS: Percent Iron Saturation 10 % (20-50)
[2023-09-11 09:18] LABS: Prostate Specific Antigen 0.8 ng/mL (< OR = 4.0)
[2023-09-11 09:30] LABS: Ferritin 6.49 ng/mL (11.1-264)
== END 2023-09-11 07:27 | disposition home or self-care (01) ==
LOC: ANHLAB 07:27
PROVIDERS: PCP Family Medicine; Visit Provider Family Medicine
DX: R73.03 Prediabetes (principal); Z00.00 Encounter for general adult medical examination without abnormal findings; Z12.5 Encounter for screening for malignant neoplasm of prostate; E78.2 Mixed hyperlipidemia; D64.9 Anemia, unspecified
CPT/HCPCS: 36415; 80053; 80061; 82728; 83036; 83540; 83550; 84153; 85025; G0103

== ENCOUNTER 2024-01-10 08:02 | Outpatient (CLI) | payer MEDICARE, SELFPAY ==
[2024-01-10 15:44] LABS: Hemoglobin 15.6 g/dL (14.0-18.0); Mean Corpuscular HGB Conc 33.2 g/dl (32-36); Mean Corpuscular Hemoglobin 29.6 pg (26-34); Mean Corpuscular Volume 89.2 fl (80-100); Mean Platelet Volume 10.1 fl (7.4-10.4); Platelet Count Result 174 k/mm3 (150-375); Red Blood Count 5.27 M/mm3 (4.6-6.20); Red Cell Distribution Width 16.4 % (11.5-14.5); White Blood Count 6.9 K/mm3 (4.5-10.0)
[2024-01-10 17:50] LABS: Alanine Aminotransferase 35 U/L (6-50); Albumin Level 4.2 g/dL (3.5-5.1); Alkaline Phosphatase 63 U/L (38-126); Anion Gap 9 mmol/L (4-12); Aspartate Amino Transferase 94 U/L (17-59); Blood Urea Nitrogen 17 mg/dL (9-20); Carbon Dioxide 30 mmol/L (22-30); Chloride 101 mmol/L (98-107); Estimated Glomerular Filt Rate 59; Glucose 102 mg/dL (65-110); Potassium 4.1 mmol/L (3.4-5.0); Sodium 140 mmol/L (137-145)
[2024-01-10 17:53] LABS: Iron 98 ug/dL (49-181)
[2024-01-10 18:03] LABS: Percent Iron Saturation 29 % (20-50)
[2024-01-10 19:01] LABS: Hemoglobin A1C 6.3 % (<5.7)
== END 2024-01-10 08:03 | disposition home or self-care (01) ==
LOC: ANHGOSHLAB 08:03
PROVIDERS: PCP Family Medicine; Visit Provider Family Medicine
DX: D64.9 Anemia, unspecified (principal); R73.03 Prediabetes
CPT/HCPCS: 36415; 80053; 82728; 83036; 83540; 83550; 85027

== ENCOUNTER 2024-01-25 08:02 | Outpatient (CLI) | payer MEDICARE, SELFPAY ==
[2024-01-25 19:12] LABS: Alanine Aminotransferase 42 U/L (6-50); Albumin Level 4.2 g/dL (3.5-5.1); Alkaline Phosphatase 71 U/L (38-126); Aspartate Amino Transferase 78 U/L (17-59); Bilirubin,Total 1.1 mg/dL (0.2-1.3)
[2024-01-25 19:57] LABS: Hepatitis B Surface Antigen Negative (Negative)
[2024-01-25 20:02] LABS: HAV RESULT Negative (Negative); Hepatitis B Core IgM Result Negative (Negative)
[2024-01-25 20:14] LABS: Hepatitis C Virus Antibody Negative (Negative)
== END 2024-01-25 08:03 | disposition home or self-care (01) ==
LOC: ANHGOSHLAB 08:03
PROVIDERS: PCP Family Medicine; Visit Provider Family Medicine
DX: R74.8 Abnormal levels of other serum enzymes (principal); R53.83 Other fatigue
CPT/HCPCS: 36415; 80074; 80076

== ENCOUNTER 2024-01-25 08:13 | Outpatient (CLI) | payer MEDICARE, SELFPAY ==
--- NOTE | ~2024-01-25 | US_ITS ---
EXAMINATION: US abdomen limited DATE: 01/25/2024 08:33 INDICATION: Abnormal levels of other serum enzymes TECHNIQUE: Multiple grayscale and Doppler ultrasound images of the abdomen were obtained. COMPARISON: CT dated 02/20/2021 FINDINGS: The pancreatic head and body are normal in appearance. The pancreatic tail is not visualized. Liver has normal echogenicity and contour, with a smooth surface. No liver lesion identified. No intrahepat ic biliary duct dilation suspected. Portal venous flow was seen in the hepatopetal, normal direction and has normal Doppler waveform. There are few echogenic and shadowing gallstones at the neck and fun dus of the otherwise normal gallbladder. Common bile duct measures up to 6 mm diameter which is nettie l. Sonographic Islas sign was reported as negative by the drier and evaporator operator. 2.2 cm anechoic cyst at the v isualized portion of the right kidney. IMPRESSION: 1. Cholelithiasis without biliary ductal dilation or findings of acute cholecystitis. Reviewed, dictated and finalized at location B. IMPRESSION: 1. Cholelithiasis without biliary ductal dilation or findings of acute cholecys titis.
== END 2024-01-25 08:14 | disposition home or self-care (01) ==
LOC: GOSHIMG 08:14
PROVIDERS: PCP Family Medicine; Visit Provider Family Medicine
DX: K80.20 Calculus of gallbladder without cholecystitis without obstruction (principal); R74.8 Abnormal levels of other serum enzymes
CPT/HCPCS: 76705

== ENCOUNTER 2024-12-20 08:17 | Outpatient (CLI) | payer MEDICARE, SELFPAY ==
--- OUTSIDE RECORDS SUMMARY | 2024-12-20 08:20 | XMS_ITS | Clinical Summary ---
Author Organization [facility] Address [address] Attn: Epic Prelude ADT JUANJOSE ZENG [id number] Care Team Providers Care Strip Winder Name Role Phone Unavailable Primary Care Provider Unavailabl e Medications phenazopyridine 100 mg tablet Take 2 Tablets (200 mg) by mouth 3 times daily as needed for urinary pain. 20 Tablet 10/22/2021 10:26 AM CDT 2 Active olmesartan (BENICAR) 5 mg tablet Take 1 tablet (5 mg total) by mouth 2 (two) times a day 180 Tablet 1 2 Active clotrimazole-be tamethasone (LOTRISONE) 1-0.05 % Cream APPLY TO RASH ON ABDOMEN TWICE DAILY. 45 Gram 1 08/30/2022 2:09 PM CDT 3 Active nirmatrelvir-ri tonavir (Paxlovid) 300(150mg x 2)-100 mg oral pack for 5 days; take TWO 150 mg tablets of nirmatrelvir with ONE 100 mg tablet of ritonavir twice daily for 5 days PO 30 Each 3 Active Ascorbate Calcium 500 mg Tablet Take 500 mg by mouth daily. 90 Tablet 4 Active ferrous sulfate 325 mg (65 mg iron) tablet Take 1 Tablet (325 mg) by mouth daily. 90 Tablet 09/15/2023 3:15 PM CDT 4 Active nitroglycerin (NITROSTAT) 0.4 mg Tablet, Sublingual DISSOLVE ONE TABLET UNDER THE TONGUE EVERY 5 MINUTES NEEDED FOR CHEST PAIN FOR MAXIMUM OF 3 DOSES. IF A THIRD DOSE IS NEEDED CALL 911 25 Tablet 1 04/30/2024 10:55 AM VP STRATEGIC PLANNING 4 Active ferrous sulfate 325 mg (65 mg iron) tablet Take 1 tablet by mouth every other day 100 Tablet 2 03/09/2024 4:51 PM CDT 4 Active mecobalamin, vitamin B12, 5,000 mcg Tablet, Chewable 5000 mcg orally daily 100 Tablet 2 4 Active ketoconazole (NIZORAL) 2 % Shampoo Shampoo twice weekly to scalp, leave on for 5 minutes before rinsing. Alternate with two other OTC antifungal shampoos 120 mL 7 04/28/2024 2:13 PM VP STRATEGIC PLANNING 4 Active Ciclopirox 8 % Solution Apply once daily to affected nails. Remove once a week with yoruba remover. 6.6 mL 11 11/17/2024 2:03 PM CDT 5 Active tamsulosin (FLOMAX) 0.4 mg capsule Take 1 Capsule (0.4 mg) by mouth daily. 90 Capsule 3 09/27/2024 1:18 PM CDT 5 Active carvediloL (COREG) 12.5 mg tablet Take 1 Tablet (12.5 mg) by mouth 2 times daily with meals. 180 Tablet 09/27/2024 1:18 PM CDT 5 Active clopidogreL (PLAVIX) 75 mg Tablet Take 1 Tablet (75 mg) by mouth daily. 90 Tablet 09/27/2024 1:18 PM CDT 5 Active olmesartan (BENICAR) 5 mg tablet Take 1 Tablet (5 mg) by mouth 2 times daily. 180 Tablet 09/27/2024 1:18 PM CDT 5 Active rosuvastatin (CRESTOR) 40 mg tablet TAKE ONE TABLET BY MOUTH ONCE DAILY 90 Tablet 09/27/2024 1:18 PM CDT 5 Active mupirocin (BACTROBAN) 2 % Ointment Apply topically 3 (three) times a day for 10 days 22 Gram 10/06/2024 11:09 AM CDT 5 Active clotrimazole-be tamethasone (LOTRISONE) 1-0.05 % Cream APPLY TOPICALLY TO RASH ON ABDOMEN TWICE DAILY 45 Gram 1 10/29/2024 3:46 PM CDT 5 Active clobetasoL (TEMOVATE) 0.05 % Cream Apply to the affected area(s) once daily 60 Gram 11/01/2024 10:49 AM CDT 5 Active Social History Tobacco Use Types Packs/Day Years Used Date Smoking Tobacco: Never Assessed Sex and Gender Information Value Date Recorded Sex Assigned at Not on file Legal Sex Male 3:27 PM CDT Gender Identity Male 10/05/2024 9:16 PM CDT Sexual Orientation Asexual 10/05/2024 9: 16 PM CDT Plan of Treatment Health Maintenance Due Date Last Done Comments DTAP/TDAP/TD VACCINES (1 - Tdap) 01/21/1967 PNEUMOCOCCAL VACCINE 50+ YEA RS (1 of 1 - PCV) 01/21/1998 ZOSTER VACCINE (1 of 2) 01/21/1998 RSV VACCINE (60+ or ) (1 - 1-dose 75+ series) 01/21/2023 INFLUENZA VACCINE (#1) 2024 04/14/2023, 2020 Insurance RX HA PLANS (INTERNAL) [facility] RX [employer] Medicare Part D
--- OUTSIDE RECORDS SUMMARY | 2024-12-20 08:20 | XMS_ITS | Clinical Summary ---
Author Organization [facility] Address [address] [place] [address] Care Team Providers Care Research And Development Technician Name Role Phone Zofia Delacruz MD Primary Care Provider [phone] Rancho Sebastian MD Unavailable [phone] Allergies Active Allergy Reactions Criticality Noted Date Comments Levofloxacin Muscle pain Medium 10/14/2021 Nirmatrelvir-Ritonavir Stomach upset Low 02/02/2023 Medications aspirin 81 mg tablet take 1 tablet by oral route every day 0 0 03/04/20 13 Active Additional Information Patient taking differently:81 mgoral Every morning, Reported on 10/05/2024 MULTIVITAMIN ORALIndications:supp lement Take 1 tablet by mouth 2 (two) times a day Active betamethasone valerate (VALISONE) 0.1 % ointment Apply topically as needed 08/25/19 22 Active clotrimazole-betamet hasone (LOTRISONE) cream 2 (two) times a day as needed 08/27/19 22 Active nitroglycerin (NITROSTAT) 0.4 mg SL tablet DISSOLVE ONE TABLET UNDER THE TONGUE EVERY 5 MINUTES NEEDED FOR CHEST PAIN FOR MAXIMUM OF 3 DOSES. IF A THIRD DOSE IS NEEDED CALL 911 25 tablet 1 01/25/20 24 Active mecobalamin, vitamin B12, 5,000 mcg tablet,chewable 5000 mcg orally daily 03/07/20 24 Active ferrous sulfate 325 mg (65 mg of elemental iron) tablet Take 1 tablet (325 mg total) by mouth every other day 03/07/20 Active ascorbate calcium, vitamin C, 500 mg tablet Take 500 mg by mouth daily 09/15/19 24 Active tamsulosin (FLOMAX) 0.4 mg extended release capsule Take 1 capsule by mouth daily 90 capsule 3 09/13/19 25 Active carvediloL (COREG) 12.5 mg tablet Take 1 Tablet (12.5 mg) by mouth 2 times daily with meals. 180 tablet 09/13/19 25 Active clopidogreL (PLAVIX) 75 mg tablet Take 1 Tablet (75 mg) by mouth daily. 90 tablet 09/13/19 25 Active olmesartan (BENICAR) 5 mg tablet Take 1 Tablet (5 mg) by mouth 2 times daily. 180 tablet 09/13/19 25 Active rosuvastatin (CRESTOR) 40 mg tabletIndications:Co ronary arteriosclerosis in [place] artery TAKE ONE TABLET BY MOUTH ONCE DAILY 90 tablet 09/13/19 25 Active Active Problems Problem Noted Date Diagnosed Date History of syncope 03/23/2023 Cardiomyopathy, ischemic 03/23/2023 Bradycardia 02/15/2022 Stricture, urethra 09/23/2021 Overview (09/23/2021): Added automatically from request for surgery [id number] Pancreas cyst 03/05/2021 Coronary artery disease of n ative artery of [place] heart with stable angina pectoris 02/02/2021 KEVIN (obstructive sleep apnea) 02/02/2021 Right renal mass 10/27/2020 S/P coronary artery stent placement 04/15/2020 Coronary stent restenosis 03/20/2019 Elevated blood sugar 03/19/2019 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 01/23/2019 Overview (01/23/2019): Added automatically from request for surgery [id number] History of myocardial infarction 09/12/2012 Slowing of urinary stream 09/06/2012 Hypercholesterolemia 03/19/2012 Overview (08/17/2016): PURE HYPERCHOLESTEROLEM Assessment & Plan (02/09/2017 6:47 PM CDT): POC lipids today: Total cholesterol 125, HDL 50, TG 114, LDL 52 Doing well with atorvastatin 80 mg daily Essential hypertension 03/19/2012 Overview (08/17/2016): BENIGN HYPERTENSION Assessment & Plan (02/09/2017 6:47 PM CDT): Hypertension is at goal on medical therapy Chronic ischemic heart disease 03/19/2012 Overview (08/18/2016): CHR ISCHEMIC HRT DIS NEC History of coronary artery bypass surgery 2011 Overview (08/19/2016): AORTOCORONARY BYPASS Exercise-induced angina 03/19/2012 Overview (08/19/2016): Angina effort Atherosclerosis of coronary artery bypass graft 03/19/2012 Overview (08/19/2016): NURIA BARDALES Resolved Problems Problem Noted Date Diagnosed Date Resolved Date Liver lesion 03/05/2021 02/15/2022 Preoperative cardiovascular examination 02/02/2021 02/15/2022 Groin mass 07/15/2019 02/15/2022 Visit for wound check 03/04/20192020 Coronary arteriosclerosis in [place] artery 01/26/2016 02/02/2021 Overview (02/09/2017): July 2011: CABG x4 Later 2011: Occluded left main, occluded radial artery graft to the RCA, occluded JENI to the ramus, occluded SVG to OM2 2011: MARIBETH to RCA August 2012: Left main stenting Assessment & Plan (02/09/2017 6:49 PM CDT): July 2011: CABG x4 Later 2011: Occluded left main, occluded radial artery graft to the RCA, occluded JENI to the ramus, occluded SVG to OM2 2011: MARIBETH to RCA August 2012: Left main stenting Coronary artery disease is stable on current medical therapy without angina Because of left main stenting a prefer to continue dual anti-platelet therapy long-term Arteriosclerosis of autologo us arterial coronary artery bypass graft 01/26/2016 03/20/2019 Overview (08/19/2016): Atherosclerosis of autologous artery coronary artery bypass graft with stable angina Pain of sternum 01/26/2016 02/09/2017 Overview (08/19/2016): Sternal pain Encounters Date Type Department Care Team Description 10/05/2024 5:15 PM CDT Office Visit [facility] [address] [address] Dexter Schroeder NP Laceration of left lower extremity, initial encounter (Primary Dx) from Last 3 Months Immunizations Immunization Administration Dates Next Due Influenza, Quad, Adjuvantated, Intramuscular ,02/25/2022 Influenza, Quadrivalent, Hig h Dose, Preservative Free, Intrr 02/13/2021,02/15/2020 Influenza, Trivalent, Adjuvanted, Intramuscular 02/24/2024 Influenza, Trivalent, High D ose, Split, Preservative Free, Intramuscular 02/14/2018 Influenza, Unspecified 02/24/2024 Pneumococcal Conjugate PCV 13 12/15/2015 Pneumococcal Polysaccharide PPV23 06/14/2017 RSV Vaccine, Pref, Recombina nt, Subunit, Adjuvanted, PF, IM (Arexvy) 02/24/2023 Tdap 10/05/2024 Surgical History Surgery Date Site/Laterality Comments TOTAL KNEE ARTHROPLASTY 05/15/2010 - 05/14/2011 Right Total Knee Replacement CORONARY ARTERY BYPASS GRAFT 05/15/2012 - 05/14/2013 3V VASECTOMY COLONOSCOPY CARDIAC STENT PLACEMENT CATARACT EXTRACTION, BILATERAL Bilateral JOINT REPLACEMENT 2011 CARDIAC CATHETERIZATION with PCI on 12/26/20 CATARACT EXTRACTION 05/15/2014 - 05/14/2015 Bilateral PARTIAL NEPHRECTOMY Right ANGIOPLASTY 2013 Medical History Medical History Date Comments Sleep apnea Coronary artery disease Hypertension Hyperlipidemia Cataract Clotting disorder 2012 Heart disease 2012 Angina pectoris Kidney stone Thoracic spinal cord injury (HCC) Renal mass, right resected Urethral stricture Syncope, vasovagal usually post- op Family History Medical History Relation Name Comments Diabetes Brother 1 Merwyn Diabetes Brother 2 Merwyn Heart disease Brother 3 Chili Hypertension Brother 3 Chili Alcohol abuse Father Ranjas Heart attack Father Ranjas Myocardial Infa rction; Heart disease Father Ranjas Hypertension Father Ranjas Sudden Father Ranjas Sudden ; Diabetes Mother Gan[place]ie Hypertension Mother Gan[place]ie Rashes / Skin problems Mother [place]ie Stroke Mother [place]ie COD Diabetes Sister 1 Nita Diabetes Sister 2 Nita Heart disease Sister 2 Nita Hypertension Sister 2 Nita Anesthesia problems Neg Hx Relation Name Status Comments Brother 1 Merwyn Brother 2 Merwyn Alive Brother 3 Chili Alive Father Ranjas Mother [place]ie Sister 1 Nita Sister 2 Nita Alive Social History Tobacco Use Types Packs/Day Years Used Date Smoking Tobacco: Never Smokeless Tobacco: Never Tobacco Cessation:Counseling Given: Not Answered Alcohol Use Standard Drinks/Week Comments Yes 0 (1 standard drink = 0.6 oz pur e alcohol) Occasionally AUDIT-C Answer Date Recorded Q1: How often do you have a drink containing alc ohol? Never 10/22/2021 Average Number of Drinks Not on file 022 Q3: How often do you have si x or more drinks on one occasion? 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 Gender Identity Male 08/15/2023 12:54 PM CDT Sexual Orientation Not on file Obstetrics History Last Filed Vital Signs Vital Sign Reading Time Taken Comments Blood Pressure 150/89 10/05/2024 5:10 PM CDT Pulse 59 10/05/2024 5:10 PM CDT Temperature 36.6 C (97.9 F) 10/05/2024 5:10 PM CDT Respiratory Rate 18 10/05/2024 5:10 PM CDT Oxygen Saturation 97% 10/05/2024 5:10 PM CDT Inhaled Oxygen Concentration - - Weight 76.2 kg (168 lb) 10/05/2024 5:10 PM CDT Height 170.2 cm (5' 7) 07/23/2024 11:55 AM CDT Body Mass Index 26.31 07/23/2024 11:55 AM CDT Plan of Treatment Health Maintenance Due Date Last Done Comments Depression Screening 1950 Hepatitis C Screening 1950 Hepatitis B Screening 01/21/1966 Zoster Vaccine (1 of 2) 01/21/1998 Well Visit 65+ 01/21/2013 Fall Risk Assessment 10/22/2022 10/22/2021 Covid-19 Vaccine (8 - 2023-2 5 season) 2024 02/24/2024, 04/28/2023, 02/25/2022, Additional history exists Influenza Vaccine (#1) 2025 , 02/24/2024, 02/24/2023, Additional history exists DTaP/Tdap/Td Vaccine (2 - Td or Tdap) 10/05/2034 10/05/2024 Pneumococcal vaccine 65+ Completed 06/14/2017, 06/2015 Medical Devices Implanted Type Area Recruiter Coordinator Device Identifier Shelf Expiration Date Model / Serial / Lot Medtronic [employer] X [id number] Resolute [place] 3mm 2.1-2.7fr 18mm 140cm Rapid Exchange Radiopaque - [id number] - [id number] Implanted:Qty: 1 on 02/25/2019 by Tan Pagan MD PhD at [facility] Stent N/A: Heart Medtronic Inc 11/06/2020 [id number] / [id number] / [id number] [employer] X [id number] Resolute [place] 3.5mm 2.1-2.7fr 15mm 140cm Rapid Exchange - [id number] Implanted:Qty: 1 on 01/27/2020 by Tan Pagan MD PhD at [facility] Stent Medtronic Inc 07/31/2021 [id number] / / [id number] [employer]onic [employer] X [id number] Resolute [place] 3mm 2.1-2.7fr 22mm 140cm Rapid Exchange Radiopaque - [id number] Implanted:Qty: 1 on 01/27/2020 by Tan Pagan MD PhD at [facility] Stent Medtronic Inc 11/02/2021 [id number] [id number] / / [id number] Rt Total Knee Arthroplasty Knee [id number] [id number] Angio-Seal Evolution 8fr .038in Guidewire Bypass Tube Suture - [id number] Implanted:Qty: 1 on 02/25/2019 by Tan Pagan MD PhD at [facility] N/A: Arterial Daig [employer] 12/13/2019 [id number] / / [id number] Insurance T MEDICARE T MEDICARE [facility] [place] [address] T MEDICARE Advance Directives For more information, please contact: [phone] Documents on File Type Date Recorded Patient Front Office Manager Expl anation ADVANCE DIRECTIVE 02/12/2021 10:02 AM Fernanda r of Leisure Travel Agent-Medical * Full Code (Latest Code Status on File) Date Activated Date Inactivated Comments 02/12/2021 6:05 PM 02/14/2021 6:52 PM * Full Code Date Activated Date Inactivated Comments 01/27/2020 3:37 PM 01/27/2020 11:01 PM * Full Code Date Activated Date Inactivated Comments 02/25/2019 5:10 PM 02/25/2019 10:38 PM Care Teams Research And Development Technician Relationship Specialty Start Date End Date Zofia Delacruz MD PCP - General 08/12/16 Rancho Sebastian MD Consulting Physician Urology 10/22/21
[2024-12-20 13:11] LABS: Alanine Aminotransferase 47 U/L (6-50); Albumin Level 4.2 g/dL (3.5-5.1); Alkaline Phosphatase 59 U/L (38-126); Anion Gap 10 mmol/L (4-12); Aspartate Amino Transferase 90 U/L (17-59); Bilirubin,Total 1.4 mg/dL (0.2-1.3); Blood Urea Nitrogen 25 mg/dL (9-20); Calcium 9.0 mg/dL (8.4-10.2); Carbon Dioxide 25 mmol/L (22-30); Chloride 107 mmol/L (98-107); Cholesterol 107 mg/dL (0-200); Estimated Glomerular Filt Rate 54; Glucose 103 mg/dL (65-110); HDL Direct 46 mg/dL; Potassium 4.3 mmol/L (3.4-5.0); Sodium 142 mmol/L (137-145); Total Protein 6.7 g/dL (6.3-8.2); Triglycerides 80 mg/dL (<150)
[2024-12-20 14:09] LABS: Hemoglobin A1C 5.9 % (<5.7)
== END 2024-12-20 08:18 | disposition home or self-care (01) ==
PROVIDERS: PCP Family Medicine; Visit Provider Student in an Organized Health Care Education/Training Program
DX: I25.10 Atherosclerotic heart disease of native coronary artery without angina pectoris (principal); I10 Essential (primary) hypertension; E78.2 Mixed hyperlipidemia; R73.03 Prediabetes
CPT/HCPCS: 36415; 80053; 80061; 83036

== ENCOUNTER 2025-01-25 11:52 | Emergency (ER) | payer MEDICARE, SELFPAY ==
--- NOTE | 2025-01-25 11:55 | ED.BACK ---
HPI - Back Pain/Injury General Chief Complaint: Back Pain/Injury Stated Complaint: Back Pain Time Seen by Provider: 01/25/25 12:04 Source: patient, RN notes reviewed and old records reviewed Mode of arrival: ambulatory Limitations: no limitations History of Present Illness HPI Narrative: 75-year-old male presents to the [facility] with back pain. States that he had was doing yoga yesterday. No injury. Reports that he does do yoga daily. Had to start using a walker due to the discomfort. Denies any abdominal pain. No nausea or vomiting. Denies fevers. Denies any loss or retention of bowel or bladder. Denies any new numbness or tingling in extremities. Area has been taped. Has taken Tylenol and used ice to his back. Onset (ago): day(s) (1) Related Data Home Medications ?Medication ?Instructions ?Recorded ?Confirmed ?Last Taken ?Type amlodipine 5 mg tablet 5 mg PO DAILY 07/08/19 10/11/24 09/30/21 History aspirin 81 mg tablet,delayed 81 mg PO DAILY 07/08/19 10/11/24 Unknown History release (Adult Low Dose Aspirin) olmesartan 5 mg tablet 5 mg PO BID 07/08/19 10/11/24 Unknown History rosuvastatin 40 mg tablet (Crestor) 40 mg PO DAILY 07/08/19 10/11/24 Unknown History clopidogrel 75 mg tablet (Plavix) 75 mg PO DAILY 09/22/21 10/11/24 09/26/21 History tamsulosin 0.4 mg capsule 0.4 mg PO DAILY 09/22/21 10/11/24 Unknown History carvedilol 12.5 mg tablet 12.5 mg PO BID 08/30/22 10/11/24 Unknown History Allergies Allergy/AdvReac Type Severity Reaction Status Date / Time No Known Allergies Allergy Verified 01/25/25 12:05 Review of Systems Review of Systems: All systems reviewed & are unremarkable except as noted in HPI and below Constitutional: Constitutional: Reports no additional constitutional complaints Cardiovascular: Cardiovascular: Reports no additional cardiovascular complaints, Denies chest pain and Denies dyspnea Respiratory: Respiratory: Reports no additional respiratory complaints, Denies chest congestion, Denies cough and Denies dyspnea Gastrointestinal: Gastrointestinal: Reports no additional gastrointestinal complaints Musculoskeletal: Musculoskeletal: Reports as per HPI Integumentary/Breasts: Skin/Breast: Reports system reviewed and no additional complaints, except as docu [facility] Past Medical History Medical History Hearing loss Lumbar spondylosis Renal mass Prediabetes Mixed hyperlipidemia Hypertension Coronary artery disease Surgical History Surgical History History of nephrectomy 03/04 History of coronary artery stent placement (~2019) 2016 & 2018 Hx of heart bypass surgery (~2011) History of knee replacement (~2010) right Family History Family History Other Diabetes mellitus Family history of cardiovascular disease Family history of coronary artery disease Hypertension Social History Social History Smoking status: Never smoker Second hand tobacco smoke exposure: No Alcohol intake: never Alcohol use details: 0ccasionally Substance use: never Substance use type: does not use Lack of Transportation: No Lack of Food: Never True Current Housing: I Have Housing Concerned About Future Housing: No Difficulty Paying Gas/Electric Bills: No Difficulty Paying for Meds: No Currently Unemployed: No Education: Master's Degree or Higher Difficulty w/ Childcare or Family Care: No Living arrangements: with family Occupation/Education: retired Gender identity (if verbalized by the patient): Male Spiritual care concerns: No Comments At the time of my signature, I reviewed and agree with the nursing past medical, surgical, social, and family history. There is no relevant family history pertinent to the patient complaint. Exam Const: General: cooperative, no acute distress, well developed, alert, uncomfortable and well nourished Nutritional Appearance: well nourished Orientation/consciousness: patient oriented x3 Limitations: no limitations HENMT: Head: normal to inspection Mouth: Yes Normal oral and palatal mucosa present, Yes lip normal, Yes tongue normal and Yes moist mucous membranes Eyes: General: appearance normal, both eyes and all related structures Alignment and Position: alignment normal Neck: Neck: normal visual inspection, full ROM, no lymphadenopathy and no meningeal signs Chest: Chest palpation & inspection: normal inspection of the chest Resp: Effort & Inspection: normal respiratory effort and able to speak in complete sentences Auscultation: clear to auscultation bilaterally, no crackles, no rales, no rhonchi and no wheezes Cardio: Rate: regular rate GI: GI Palp: No abdominal tenderness : General: Yes no CVA tenderness Back/Spine/Pelvis: Back: no CVA tenderness, No ecchymosis and back tenderness Cervical Spine: normal cervical lordosis and cervical ROM normal Thoracic/Lumbar Spine: paraspinal muscle tenderness bilaterally, No thoracic spinal tenderness and No lumbar spinal tenderness Pelvis: no pain with anterior-posterior compression and no pain with lateral compression Skin: General skin exam: normal color and no rashes or lesions noted Neuro: General: patient oriented x3, gait normal, moves all extremities and no meningeal signs Cognition (Neuro): normal cognition Speech: normal speech Gait exam (Neuro): Normal gait present Extrem: General: normal to inspection, full ROM, capillary refill normal and normal gait Psych: Appearance: grossly normal and well kempt Mental Status: mental status grossly normal Speech and movement: Normal speech and movement present and Clear speech present Affect: normal affect Attitude: cooperative Course Course Level of Care: Express Care Visit Vital Signs Vital signs: Vital Signs Temperature 98.2 F 01/25/25 12:04 Pulse Rate 90 01/25/25 12:04 Respiratory Rate 14 01/25/25 12:04 Blood Pressure 173/85 H 01/25/25 12:04 Pulse Oximetry 100 01/25/25 12:04 Oxygen Delivery Room Air 01/25/25 12:04 Temperature 98.2 F 01/25/25 12:04 Pulse Rate 90 01/25/25 12:04 Respiratory Rate 14 01/25/25 12:04 Blood Pressure 161/86 H 01/25/25 12:05 Pulse Oximetry 100 01/25/25 12:04 Oxygen Delivery Room Air 01/25/25 12:04 Reviewed MDM - Back Pain/Injury MDM Narrative Medical decision making narrative: Patient sitting in exam room. Patient is nontoxic, vitals stable. Patient presents with 1 day history of back pain. Denies any injury. Patient denies any red flag symptoms Patient is appropriate for outpatient treatment with close follow-up. Will prescribe a muscle relaxer, continue with Tylenol, discussed not using ibuprofen due to medication he takes on a daily basis. Discussed signs and symptoms that he should proceed to the emergency room. Patient and both verbalized understanding Discharge instructions reviewed with patient, as well as provided in writing per nursing staff. The instructions also include specific and strict return/GO TO THE ER as well as f/u information. All questions have been answered, and the patient deny any further questions with discharge and discharge plan. Some parts of this dictation were generated by voice recognition software and may contain typographical and/or grammatical inaccuracies. Differential Diagnosis Differential diagnosis: Likely lumbar radiculopathy, strain of lumbar region, renal colic, pyelonephritis and thoracic back pain Critical Care Time Critical Care Time Critical Care Time: No Discharge Plan Discharge Clinical Impression: Strain of fascia of lower back Patient Disposition: Home Condition: Stable Instructions: Low Back Strain (ED), Acute Low Back Pain (ED), Lower Back Exercises (ED) Additional Instructions: Today your blood pressure was 161/86. Please follow-up with primary care provider within 2 weeks to have this rechecked. Take Tylenol for pain Take Baclofen (muscle relaxer) as directed. Do not drink, drive, operate machinery, or do anything dangerous while taking this medication Exercise:Combine aerobic exercise, like walking or swimming, with specific exercises to keep the muscles in your back and abdomen strong and flexible. Proper Lifting:Be sure to lift heavy items with your legs, not your back. Do not bend over to pick something up. Keep your back straight and bend at your knees. Weight:Maintain a healthy weight. Being overweight puts added stress on your lower back. Avoid Smoking:Both the smoke and the nicotine cause your spine to age faster than normal. Proper Posture:Good posture is important for avoiding future problems. A therapist can teach you how to safely stand, sit, and lift. Use warm moist heat to help with pain. Using topical such as Biofreeze, Ulysses-Velazquez or Aspercreme can also help Follow up with Primary provider in 2-3 days, This may become a chronic condition and they will be the one to help manage your pain and order additional testing. Go to the nearest ER if you develop problems with bladder/bowel function, weakness or loss of feeling in one or both of your legs. Patient Language: Albanian Prescriptions: New baclofen 10 mg tablet See Rx Instructions .Route .COMPLEX PRN (Reason: muscle pain) Qty: 10 0RF Rx Instructions: 0.5-1 tab bid prn pain No Action olmesartan 5 mg tablet 5 mg PO BID amlodipine 5 mg tablet 5 mg PO DAILY rosuvastatin [Crestor] 40 mg tablet 40 mg PO DAILY aspirin [Adult Low Dose Aspirin] 81 mg tablet,delayed release (DR/EC) 81 mg PO DAILY carvedilol 12.5 mg tablet 12.5 mg PO BID Rx Instructions: must administer with a meal/food betamethasone valerate 0.1 % ointment 1 applic topical DAILY PRN (Reason: itching) Qty: 45 1RF Rx Instructions: rash on abdomen mecobalamin (vitamin B12) 5,000 mcg tablet,chewable 5,000 mcg PO DAILY Qty: 100 2RF ferrous sulfate 325 mg (65 mg iron) tablet 325 mg PO .EVERY OTHER DAY Qty: 100 2RF clopidogrel [Plavix] 75 mg Tablet 75 mg PO DAILY tamsulosin 0.4 mg Capsule 0.4 mg PO DAILY ascorbate calcium (vitamin C) 500 mg tablet 500 mg PO DAILY Qty: 90 0RF clotrimazole-betamethasone 1-0.05 % cream 1 applic topical BID Qty: 45 1RF Rx Instructions: to rash on abdomen clobetasol 0.05 % cream 1 applic topical DAILY Qty: 60 0RF Follow-up/Referrals: Zofia Delacruz MD [Primary Care Provider, Family Practice] - 1 Week Time of Disposition: 12:17
[2025-01-25 12:04] VITALS: BP 173/85; PULSE 90; RESP 14; TEMP 36.8; O2SAT 100
[2025-01-25 12:05] VITALS: BP 161/86
== END 2025-01-25 12:20 | disposition home or self-care (01) ==
PROVIDERS: Emergency Provider Nurse Practitioner; PCP Family Medicine
DX: S39.012A Strain of muscle, fascia and tendon of lower back, initial encounter (principal); X58.XXXA Exposure to other specified factors, initial encounter; I10 Essential (primary) hypertension; I25.10 Atherosclerotic heart disease of native coronary artery without angina pectoris; E78.2 Mixed hyperlipidemia; R73.03 Prediabetes; M47.816 Spondylosis without myelopathy or radiculopathy, lumbar region; Z95.5 Presence of coronary angioplasty implant and graft; Z96.651 Presence of right artificial knee joint; Z79.01 Long term (current) use of anticoagulants
CPT/HCPCS: 99213; G0463

== ENCOUNTER 2025-03-20 00:35 | Day surgery (SDC) | payer MEDICARE, SELFPAY ==
[2025-03-11 13:35] VITALS: BMI 24.6
--- NOTE | 2025-03-11 13:50 | PC.NURSE ---
Spoke with patient regarding medication Plavix. Patient verbalizes understanding that the last dose is to be taken on 03/15/2025 and the Endoscopist will instruct them when to restart after the procedure.
--- NOTE | 2025-03-20 10:15 | WPDANESEPPF ---
Anes - Initial Pre Proc Eval Procedure: Operation Date: 03/20/25 14:30 Proposed Procedures p Screening Colonoscopy - Castillo Davison MD Date/Time: 03/20/25 10:15 Surgeon: Castillo Davison MD Pre Op Diagnosis: Personal history of colon polyps, unspecified Patient Data Age: 75 Gender: M Height: 1.7 m Weight: 71.3 kg Allergies Allergy/AdvReac Type Severity Reaction Status Date / Time No Known Allergies Allergy Verified 03/20/25 10:17 Home Medications ?Medication ?Instructions ?Recorded ?Confirmed ?Type aspirin 81 mg tablet,delayed 81 mg PO DAILY 07/08/19 03/20/25 History release (Adult Low Dose Aspirin) olmesartan 5 mg tablet 5 mg PO BID 07/08/19 03/20/25 History rosuvastatin 40 mg tablet (Crestor) 40 mg PO DAILY 07/08/19 03/20/25 History clopidogrel 75 mg tablet (Plavix) 75 mg PO DAILY 09/22/21 03/20/25 History tamsulosin 0.4 mg capsule 0.4 mg PO DAILY 09/22/21 03/20/25 History carvedilol 12.5 mg tablet 12.5 mg PO BID 08/30/22 03/20/25 History ascorbate calcium (vitamin C) 500 500 mg PO DAILY #90 tabs 09/15/23 03/20/25 Rx mg tablet ferrous sulfate 325 mg (65 mg 325 mg PO .EVERY OTHER DAY #100 03/07/24 03/20/25 Rx iron) tablet tabs mecobalamin (vitamin B12) 5,000 5,000 mcg PO DAILY #100 tabs 03/07/24 03/20/25 Rx mcg chewable tablet betamethasone valerate 0.1 % 1 applic topical DAILY PRN itching 10/11/24 03/11/25 Rx topical ointment #45 grams clotrimazole-betamethasone 1 1 applic topical BID #45 grams 10/28/24 03/20/25 Rx %-0.05 % topical cream clobetasol 0.05 % topical cream 1 applic topical DAILY PRN itching 03/11/25 03/11/25 History Patient hx anesthesia problems: none Family hx anesthesia problems: none Results Review: All pre-operative results and documents have been reviewed as part of the pre-operative evaluation. [facility] Past Medical History Medical History Hearing loss Lumbar spondylosis Renal mass Prediabetes Mixed hyperlipidemia Hypertension Coronary artery disease Surgical History Surgical History History of nephrectomy 03/04 History of coronary artery stent placement (~2019) 2016 & 2018 Hx of heart bypass surgery (~2011) History of knee replacement (~2010) right Family History Family History Other Diabetes mellitus Family history of cardiovascular disease Family history of coronary artery disease Hypertension Social History Social History Smoking status: Never smoker Second hand tobacco smoke exposure: No Alcohol intake: never Alcohol use details: 0ccasionally Substance use: never Substance use type: does not use Lack of Transportation: No Lack of Food: Never True Current Housing: I Have Housing Concerned About Future Housing: No Difficulty Paying Gas/Electric Bills: No Difficulty Paying for Meds: No Currently Unemployed: No Education: Master's Degree or Higher Difficulty w/ Childcare or Family Care: No Living arrangements: with family Occupation/Education: retired Gender identity (if verbalized by the patient): Male Spiritual care concerns: No Anes - Eval Final PreProcedure Day of Procedure 03/20/25 10:15 Patient weight: normal Heart: regular rate and rhythm Lungs: clear to auscultation and normal air movement Airway: Mallampati scale class II Neurological: alert and oriented Last oral intake: >/= 8 hours ASA classification: III Emergent: no Anesthetic plan: proceed Anesthesia type and monitoring: general GIVS and standard monitoring Results Review: All pre-operative results and documents have been reviewed as part of the pre-operative evaluation. Informed Consent: The patient's anesthetic plan and its attendant risks and benefits were discussed with the patient/family/POA. Questions were solicited and answers provided to the satisfaction of the patient/family/POA.
[2025-03-20 10:19] VITALS: BP 135/74; PULSE 58; RESP 18; TEMP 36.4; O2SAT 100
[2025-03-20] MEDS: LACTATED RINGERS 1,000 ML 150 ML IV CONT (10:23)
--- NOTE | 2025-03-20 10:39 | PM.HPGS ---
History of Present Illness History of Present Illness Consent: Risks, benefits, and alternatives have been discussed and questions answered. Patient agrees to proceed with procedure. Chief complaint: Personal history of colon polyps, unspecified Narrative: Nirmal Rivers is a 75 year old male with colon polyps in 2021 Review of Systems Review of Systems: All systems reviewed & are unremarkable except as noted in HPI and below PMFSH Past Medical History Medical History (Updated 03/20/25 @ 10:40 by Castillo Davison MD) Colon polyp Hearing loss Lumbar spondylosis Renal mass Prediabetes Mixed hyperlipidemia Hypertension Coronary artery disease Surgical History Surgical History History of nephrectomy 03/04 History of coronary artery stent placement (~2019) 2016 & 2018 Hx of heart bypass surgery (~2011) History of knee replacement (~2010) right Family History Family History Other Diabetes mellitus Family history of cardiovascular disease Family history of coronary artery disease Hypertension Social History Social History Smoking status: Never smoker Second hand tobacco smoke exposure: No Alcohol intake: never Alcohol use details: 0ccasionally Substance use: never Substance use type: does not use Lack of Transportation: No Lack of Food: Never True Current Housing: I Have Housing Concerned About Future Housing: No Difficulty Paying Gas/Electric Bills: No Difficulty Paying for Meds: No Currently Unemployed: No Education: Master's Degree or Higher Difficulty w/ Childcare or Family Care: No Living arrangements: with family Occupation/Education: retired Gender identity (if verbalized by the patient): Male Spiritual care concerns: No Meds Home Medications and Allergies Home Medications ?Medication ?Instructions ?Recorded ?Confirmed ?Type aspirin 81 mg tablet,delayed 81 mg PO DAILY 07/08/19 03/20/25 History release (Adult Low Dose Aspirin) olmesartan 5 mg tablet 5 mg PO BID 07/08/19 03/20/25 History rosuvastatin 40 mg tablet (Crestor) 40 mg PO DAILY 07/08/19 03/20/25 History clopidogrel 75 mg tablet (Plavix) 75 mg PO DAILY 09/22/21 03/20/25 History tamsulosin 0.4 mg capsule 0.4 mg PO DAILY 09/22/21 03/20/25 History carvedilol 12.5 mg tablet 12.5 mg PO BID 08/30/22 03/20/25 History ascorbate calcium (vitamin C) 500 500 mg PO DAILY #90 tabs 09/15/23 03/20/25 Rx mg tablet ferrous sulfate 325 mg (65 mg 325 mg PO .EVERY OTHER DAY #100 03/07/24 03/20/25 Rx iron) tablet tabs mecobalamin (vitamin B12) 5,000 5,000 mcg PO DAILY #100 tabs 03/07/24 03/20/25 Rx mcg chewable tablet betamethasone valerate 0.1 % 1 applic topical DAILY PRN itching 10/11/24 03/11/25 Rx topical ointment #45 grams clotrimazole-betamethasone 1 1 applic topical BID #45 grams 10/28/24 03/20/25 Rx %-0.05 % topical cream clobetasol 0.05 % topical cream 1 applic topical DAILY PRN itching 03/11/25 03/11/25 History Allergies Allergy/AdvReac Type Severity Reaction Status Date / Time No Known Allergies Allergy Verified 03/20/25 10:17 Vital Signs Vital Signs - 24 hr 03/20/25 10:19 Temperature 97.5 F L Pulse Rate 58 L Respiratory Rate 18 Blood Pressure 135/74 Pulse Oximetry 100 Oxygen Delivery Room Air Exam Const: General: comfortable and no acute distress HENMT: Face/Nose/Sinus: Normal nares present Resp: Auscultation: clear to auscultation bilaterally Cardio: Rate: regular rate Rhythm: regular rhythm GI: Inspection: non-distended GI Palp: Yes Soft to palpation Skin: General skin exam: normal color Extrem: General: normal to inspection Psych: Mental Status: mental status grossly normal Assessment and Plan Assessment and plan (1) Colon polyp: Code(s): K63.5 - Polyp of colon Status: Acute Assessment and Plan: colonoscopy
--- NOTE | 2025-03-20 10:55 | S_PTH ---
PATIENT: Nirmal Rivers LOC: [facility]#:[id number] AGE/SX: 75/M ROOM: RE03/20/[address]: Castillo Davison MD : 1950 BED: DIS: 03/20/2025 SPEC #: [id number] RECD: 03/20/25 11:40 STATUS: REED SPEARS #: [id number] KAI: 03/20/25 10:[address]: Castillo Davison DEPT: [facility] Surgical RECD BY: Lachelle Sommers ENTERED: 03/20/25 11:40 SP TYPE: Surgical OTHR DR: Telma Daugherty PA-C Tissues: A - Colon Polypectomy B - Colon Polypectomy Procedures: Hematoxylin and Eosin Stain Gross and Microscopic Level 4
[2025-03-20 10:56] VITALS: BP 86/49; PULSE 59; RESP 18; O2SAT 99
[2025-03-20 11:06] VITALS: BP 85/51; PULSE 58; RESP 18; O2SAT 99
[2025-03-20 11:16] VITALS: BP 112/61; PULSE 57; RESP 18; O2SAT 100
--- OUTSIDE RECORDS SUMMARY | 2025-03-20 15:59 | XMS_ITS | Clinical Summary ---
Author Organization [facility] Address [address] [place] [address] Care Team Providers Care Honing Machine Set Up Operator Tool Name Role Phone Zofia Dealcruz MD Primary Care Provider [phone] Rancho Sebastian MD Unavailable [phone] Allergies Active Allergy Reactions Criticality Noted Date Comments Levofloxacin Muscle pain Medium 10/14/2021 Nirmatrelvir-Ritonavir Stomach upset Low 02/02/2023 Medications aspirin 81 mg tablet take 1 tablet by oral route every day 0 0 013 Active Additional Information Patient taking differently:81 mgoral Every morning, Reported on 01/30/2025 MULTIVITAMIN ORALIndications:sup plement Take 1 tablet by mouth 2 (two) times a day Active betamethasone valerate (VALISONE) 0.1 % ointment Apply topically as needed 022 Active clotrimazole-betame thasone (LOTRISONE) cream 2 (two) times a day as needed 022 Active nitroglycerin (NITROSTAT) 0.4 mg SL tablet DISSOLVE ONE TABLET UNDER THE TONGUE EVERY 5 MINUTES NEEDED FOR CHEST PAIN FOR MAXIMUM OF 3 DOSES. IF A THIRD DOSE IS NEEDED CALL 911 25 tablet 1 024 Active mecobalamin, vitamin B12, 5,000 mcg tablet,chewable 5000 mcg orally daily 024 Active ferrous sulfate 325 mg (65 mg of elemental iron) tablet Take 1 tablet (325 mg total) by mouth every other day Active ascorbate calcium, vitamin C, 500 mg tablet Take 500 mg by mouth daily Active tamsulosin (FLOMAX) 0.4 mg extended release capsule Take 1 capsule by mouth daily 90 capsule 3 Active carvediloL (COREG) 12.5 mg tablet Take 1 Tablet (12.5 mg) by mouth 2 times daily with meals. 180 tablet Active clopidogreL (PLAVIX) 75 mg tablet Take 1 Tablet (75 mg) by mouth daily. 90 tablet Active olmesartan (BENICAR) 5 mg tablet Take 1 Tablet (5 mg) by mouth 2 times daily. 180 tablet Active rosuvastatin (CRESTOR) 40 mg tabletIndications:C oronary arteriosclerosis in [place] artery TAKE ONE TABLET BY MOUTH ONCE DAILY 90 tablet Active carvediloL (COREG) 12.5 mg tablet Take 1 Tablet (12.5 mg) by mouth 2 times daily with meals. 180 tablet 025 2024 Discontinued clopidogreL (PLAVIX) 75 mg tablet Take 1 Tablet (75 mg) by mouth daily. 90 tablet 025 2024 Discontinued olmesartan (BENICAR) 5 mg tablet Take 1 Tablet (5 mg) by mouth 2 times daily. 180 tablet 025 2024 Discontinued rosuvastatin (CRESTOR) 40 mg tabletIndications:C oronary arteriosclerosis in [place] artery TAKE ONE TABLET BY MOUTH ONCE DAILY 90 tablet 025 2024 Discontinued Active Problems Problem Noted Date Diagnosed Date Elevated LFTs 01/30/2025 History of syncope 03/23/2023 Cardiomyopathy, ischemic 03/23/2023 Bradycardia 02/15/2022 Stricture, urethra 09/23/2021 Overview (09/23/2021): Added automatically from request for surgery [id number] Pancreatic cyst 03/05/2021 Coronary artery disease of n ative artery of [place] heart with stable angina pectoris 02/02/2021 KEVIN (obstructive sleep apnea) 02/02/2021 Right renal mass 10/27/2020 S/P coronary artery stent placement 04/15/2020 Coronary stent restenosis 03/20/2019 Elevated blood sugar 03/19/2019 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 01/23/2019 Overview (01/23/2019): Added automatically from request for surgery [id number] History of myocardial infarction 09/12/2012 Slowing of [...] coronary artery bypass graft 03/19/2012 Overview (08/19/2016): COR ATH ARTMILES RIGGS GRCHELSEY Resolved Problems Problem Noted Date Diagnosed Date Resolved Date Liver lesion 03/05/2021 02/15/2022 Preoperative cardiovascular examination 02/02/2021 02/15/2022 Groin mass 07/15/2019 02/15/2022 Visit for wound check 03/04/20192020 Coronary arteriosclerosis in [place] artery 01/26/2016 02/02/2021 Overview (02/09/2017): July 2011: [...] Encounters Date Type Department Care Team Description 03/04/2025 Orders Only [facility] Medical [facility] Cardiology at [address] [place] [address] ProviderAurelia MD 01/30/2025 11:00 AM CDT Office Visit [facility] Medicine Gastroenterology [address] [place] [address] Clement Caballero MD Pancreatic cyst (Primary Dx); Elevated LFTs; Liver lesion 01/28/2025 11:00 AM CDT Lab [address] [address] Elevated LFTs 01/28/2025 10:57 AM CDT - 01/28/2025 11:59 PM CDT Hospital Encounter [facility] ` [address] [place] [address] Elevated LFTs Discharge Disposition: Discharge to home or self care 01/27/2025 Telephone [facility] Medical Group Cardiology [address] [place] [address] Sridhar Mckeon MD 01/24/2025 Orders Only [facility] Medicine Gastroenterology [address] [place] [phone] Clement Caballero MD Elevated LFTs (Primary Dx) 01/14/2025 10:40 AM CDT Office Visit [facility] - [facility] Medicine Urology [address] [place] [phone] Israel Marmolejo MD Oncocytoma (Primary Dx); Benign prostatic hyperplasia with incomplete bladder emptying; Nephrolithiasis 01/14/2025 8:54 AM CDT - 01/14/2025 11:59 PM CDT Hospital Encounter [facility] Imaging [address] [place] [address] Oncocytoma Discharge Disposition: Discharge to home or self care from Last 3 Months Immunizations Immunization Administration [...] - 05/14/2015 Bilateral PARTIAL NEPHRECTOMY Right ANGIOPLASTY 2012 Medical History Medical History Date Comments Sleep apnea Coronary artery disease Hypertension Hyperlipidemia Cataract Clotting disorder 2012 Heart disease 2012 Angina pectoris Kidney stone Thoracic spinal cord injury (HCC) Renal mass, right resected Urethral stricture Syncope, vasovagal usually post- op Family History Medical History Relation Name Comments Diabetes Brother 1 Merwyn Diabetes Brother 2 Merwyn Heart disease Brother 3 Jefferson Hypertension Brother 3 Jefferson Alcohol abuse Father Ranjas Heart attack Father [...] Merwyn Brother 2 Merwyn Alive Brother 3 Zack Alive Father Ranjas Mother [place] Sister 1 [...] have a drink containing alc ohol? Never 01/30/2025 Average Number of Drinks Not on file 025 Frequency of Binge Drinking Not on file 01/13 Sex and Gender Information Value Date Recorded Sex Assigned at Not on file Legal Sex Male 10:10 AM APRN Gender Identity Male 08/15/2023 12:54 PM CDT Sexual Orientation Not on file Last Filed Vital Signs Vital Sign Reading Time Taken Comments Blood Pressure 154/87 01/30/2025 11:07 AM CDT Pulse 54 01/30/2025 11:07 AM CDT Temperature 36.6 C (97.9 F) 10/05/2024 5:10 PM CDT Respiratory Rate 18 10/05/2024 5:10 PM CDT Oxygen Saturation 97% 10/05/2024 5:10 PM CDT Inhaled Oxygen Concentration - - Weight 72.9 kg (160 lb 12.8 oz) 025 11:07 AM CDT Height 170.2 cm (5' 7) 01/30/2025 11:0 7 AM CDT Body Mass Index 25.18 01/30/2025 11:07 AM CDT Plan of Treatment Health Maintenance Due Date Last Done Comments Depression Screening 1950 Hepatitis C Screening 1950 Hepatitis B Screening 01/21/1966 Zoster Vaccine (1 of 2) 01/21/1998 Well Visit 65+ 01/21/2013 Fall Risk Assessment 10/22/2022 10/22/2021 Covid-19 Vaccine (8 - 2024-2 6 season) 2025 02/24/2024, 04/28/2023, 02/25/2022, Additional history exists Influenza Vaccine (#1) 2025 , 02/24/2024, 02/24/2023, Additional history exists DTaP/Tdap/Td Vaccine (2 - Td or Tdap) 10/05/2034 10/05/2024 Pneumococcal vaccine 65+ Completed 06/14/2017, 06/2015 Medical Devices Implanted Type Area Database Software Technician Device Identifier Shelf Expiration Date Model / Serial / Lot [employer] X [id number] Resolute Ruffin 3mm 2.1-2.7fr 18mm 140cm Rapid Exchange Radiopaque - [id number] - [id number] Implanted:Qty: 1 on 02/25/2019 by Tan Pagan MD PhD at [facility] Stent N/A: Heart Medtronic Inc 11/06/2020 [id number] [id number] / [id number] / [id number] [employer] X [id number] Resolute Ruffin 3.5mm 2.1-2.7fr 15mm 140cm Rapid Exchange - [id number] Implanted:Qty: 1 on 01/27/2020 by Tan Pagan MD PhD at [facility] Stent Med[employer]onic Inc 07/31/2021 [id number] [id number] / / [id number] [employer] X [id number] Resolute Trey 3mm 2.1-2.7fr 22mm 140cm Rapid Exchange Radiopaque - [id number] Implanted:Qty: 1 on 01/27/2020 by Tan Pagan MD PhD at [facility] Stent Med[employer]onic Inc 11/02/2021 [id number] 2UX / / [id number] Rt Total Knee Arthroplasty Knee [employer] [id number] Angio-Seal Evolution 8fr .038in Guidewire Bypass Tube Suture - [id number] Implanted:Qty: 1 on 02/25/2019 by Tan Pagan MD PhD at [facility] N/A: Arterial [employer] 12/13/2019 [id number] / / [id number] Procedures Procedure Name Priority Date/Time Associated Diagnosis Comments US RUQ Schedule Routine, Read Routine (OP Routine) 01/28/2025 11:51 AM CDT Elevated LFTs HEPATIC FUNCTION PANEL Routine 01/28/2025 11:26 AM CDT Elevated LFTs US KIDNEY COMPLETE Schedule Routine, Read Routine (OP Routine) 01/14/2025 9:40 AM CDT Oncocytoma LIPID PANEL Routine 12/20/2024 9:33 AM CDT from Last 3 Months Results * RUQ Ultrasound (01/28/2025 11:51 AM CDT) Anatomical Region Laterality Modality Abdomen N/A Ultrasound 01/28/2025 8:34 PM CDT Impressions 01/28/2025 8:34 PM CDT 1. Incomplete gallbladder distention with question subtle sclerotic. Superior right renal cyst Electronically signed by: Sally Sadler M.D. Narrative 01/28/2025 8:34 PM CDT EXAM: Right upper quadrant ultrasound HISTORY: Abnormal liver function tests COMPARISON: CT 01/12/2024 FINDINGS: There is no discrete liver mass. There is no hepatomegaly. There is antegrade blood flow in the main portal vein. Pancreas is normal. There is a 2.4 cm interpolar right renal cyst with no hydronephrosis. Gallbladder is incompletely distended. There is resultant mild wall prominence likely related to incomplete distention. Gallbladder wall is 4 mm. There may be subtle sludge but no definite cholelithiasis is seen. There is no pericholecystic fluid. There is no sonographic Islas sign. Common bile duct is normal caliber 5 mm. The aorta is normal size. Proximal IVC is patent. Procedure Note Sally Sadler MD - 01/28/2025 EXAM: Right upper quadrant ultrasound HISTORY: Abnormal liver function tests COMPARISON: CT 01/12/2024 FINDINGS: There is no discrete liver mass. There is no hepatomegaly. There is antegrade blood flow in the main portal vein. Pancreas is normal. There is a 2.4 cm interpolar right renal cyst with no hydronephrosis. Gallbladder is incompletely distended. There is resultant mild wall prominence likely related to incomplete distention. Gallbladder wall is 4 mm. There may be subtle sludge but no definite cholelithiasis is seen. There is no pericholecystic fluid. There is no sonographic Islas sign. Common bile duct is normal caliber 5 mm. The aorta is normal size. Proximal IVC is patent. IMPRESSION: 1. Incomplete gallbladder distention with question subtle sclerotic. Superior right renal cyst Electronically signed by: Sally Sadler M.D. Clement Caballero MD IMG US PROCEDURES Final Result * Hepatic function panel (01/28/2025 11:26 AM CDT) Bilirubin, total 1.1 0.1 - 1.2 mg/dL Bilirubin, direct 0.3 0.1 - 0.3 mg/dL [facility] Protein, pl 6.8 6.5 - 8.5 g/dL [facility] Albumin 4.3 3.5 - 5.0 g/dL [facility] Alk phos 48 40 - 130 Units/L [facility] ALT 33 7 - 55 Units/L [facility] AST 30 10 - 50 Units/L [facility] Blood 01/28/2025 11:2 6 AM CDT 01/28/2025 11:26 AM CDT Clement Caballero MD LAB BLOOD ORDERABL ES Final Result [facility] [address] [address] Department [place] [address] * Renal Complete/US (01/14/2025 9:40 AM CDT) Anatomical Region Laterality Modality Kidney N/A Ultrasound 01/14/2025 10:2 0 AM CDT Impressions 01/14/2025 10:20 AM CDT 1. Stable changes of right partial nephrectomy without evidence of locally recurrent disease or new suspicious renal lesion. No hydronephrosis. 2. Probable nonobstructing 3 mm left kidney stone. Electronically signed by: Dino Mcdaniel M.D. Narrative 01/14/2025 10:20 AM CDT EXAMINATION: COMPLETE RENAL SONOGRAM HISTORY: Status post resection of uncal cytoma. COMPARISON: CT abdomen pelvis 01/12/2024 FINDINGS: Kidneys: Stable changes of right upper partial kidney resection. The echogenicity of both kidneys is normal. The kidneys are normal in size. The right kidney measures 9.2 cm in length, and the left, 11.3 cm in length. There is no hydronephrosis in either kidney. Stable small right kidney cyst. Left interpolar 3 mm echogenic focus with twinkly however no shadowing, likely stone given stone seen on prior CT. Bladder: The urinary bladder is decompressed Procedure Note Dino Mcdaniel MD - 01/14/2025 EXAMINATION: COMPLETE RENAL SONOGRAM HISTORY: Status post resection of uncal cytoma. COMPARISON: CT abdomen pelvis 01/12/2024 FINDINGS: Kidneys: Stable changes of right upper partial kidney resection. The echogenicity of both kidneys is normal. The kidneys are normal in size. The right kidney measures 9.2 cm in length, and the left, 11.3 cm in length. There is no hydronephrosis in either kidney. Stable small right kidney cyst. Left interpolar 3 mm echogenic focus with twinkly however no shadowing, likely stone given stone seen on prior CT. Bladder: The urinary bladder is decompressed IMPRESSION: 1. Stable changes of right partial nephrectomy without evidence of locally recurrent disease or new suspicious renal lesion. No hydronephrosis. 2. Probable nonobstructing 3 mm left kidney stone. Electronically signed by: Dino Mcdaniel M.D. Israel Marmolejo MD IMG US PROCEDURES Final Result * Lipid panel (12/20/2024 9:33 AM CDT) SCRIBED Cholesterol, Total 107 30 - 199 mg/dL EXTERNAL LAB SCRIBED Triglycerides 80 <=149 mg/dL EXTERNAL LAB SCRIBED HDL 46 >=40 mg/dL EXTERNAL LAB SCRIBED LDL 32 <=129 mg/dL EXTERNAL LAB Scribed Non-HDL Cholesterol EXTERNAL LAB Comment:. SCRIBED Total Cholesterol/HDL Ratio EXTERNAL LAB Comment:. 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
--- OUTSIDE RECORDS SUMMARY | 2025-03-20 15:59 | XMS_ITS | Clinical Summary ---
Author Organization [facility] Address [address] Attn: Epic Prelude ADT JUANJOSE ZENG [address] Care Team Providers Care All Around Presser Name Role Phone Unavailable Primary Care Provider Unavailabl e Medications phenazopyridin e 100 mg tablet Take 2 Tablets (200 mg) by mouth 3 times daily as needed for urinary pain. 20 Tablet 10/22/2021 10:26 AM CDT 2 Active olmesartan (BENICAR) 5 mg tablet Take 1 tablet (5 mg total) by mouth 2 (two) times a day 180 Tablet 1 2 Active clotrimazole-b etamethasone (LOTRISONE) 1-0.05 % Cream APPLY TO RASH ON ABDOMEN TWICE DAILY. 45 Gram 1 08/30/2022 2:09 PM CDT 3 Active nirmatrelvir-r itonavir (Paxlovid) 300(150mg x 2)-100 mg oral pack [...] 911 25 Tablet 1 04/30/2024 10:55 AM TITLE ONE READING TEACHER 4 Active ferrous sulfate 325 mg (65 [...] shampoos 120 mL 7 04/28/2024 2:13 PM TITLE ONE READING TEACHER 4 Active Ciclopirox 8 % Solution Apply once daily to affected nails. Remove once a week with kittitian remover. 6.6 mL 11 01/25/2025 2:42 PM CDT 5 Active tamsulosin (FLOMAX) 0.4 mg capsule Take 1 Capsule (0.4 mg) by mouth daily. 90 Capsule 3 12/25/2024 8:53 AM CDT 5 Active mupirocin (BACTROBAN) 2 % Ointment Apply topically 3 (three) times a day for 10 days 22 Gram 10/06/2024 11:09 AM CDT 5 Active clotrimazole-b etamethasone (LOTRISONE) 1-0.05 % Cream APPLY TOPICALLY TO RASH ON ABDOMEN TWICE DAILY 45 Gram 1 10/29/2024 3:46 PM CDT 5 Active clobetasoL (TEMOVATE) 0.05 % Cream Apply to the affected area(s) once daily 60 Gram 11/01/2024 10:49 AM CDT 5 Active baclofen (LIORESAL) 10 mg tablet Take 0.5-1 Tablets (5-10 mg) by mouth 2 times daily as needed for muscle pain. 10 Tablet 01/25/2025 2:42 PM CDT 5 Active carvediloL (COREG) 12.5 mg tablet Take 1 Tablet (12.5 mg) by mouth 2 times daily with meals. 180 Tablet 5 Active clopidogreL (PLAVIX) 75 mg Tablet Take 1 Tablet (75 mg) by mouth daily. 90 Tablet 5 Active olmesartan (BENICAR) 5 mg tablet Take 1 Tablet (5 mg) by mouth 2 times daily. 180 Tablet 5 Active rosuvastatin (CRESTOR) 40 mg tablet TAKE ONE TABLET BY MOUTH ONCE DAILY 90 Tablet 5 Active carvediloL (COREG) 12.5 mg tablet Take 1 Tablet (12.5 mg) by mouth 2 times daily with meals. 180 Tablet 12/25/2024 8:53 AM CDT 5 025 Discontin ued(Reord er) clopidogreL (PLAVIX) 75 mg Tablet Take 1 Tablet (75 mg) by mouth daily. 90 Tablet 12/25/2024 8:53 AM CDT 5 025 Discontin ued(Reord er) olmesartan (BENICAR) 5 mg tablet Take 1 Tablet (5 mg) by mouth 2 times daily. 180 Tablet 12/25/2024 8:53 AM CDT 5 025 Discontin ued(Reord er) rosuvastatin (CRESTOR) 40 mg tablet TAKE ONE TABLET BY MOUTH ONCE DAILY 90 Tablet 12/25/2024 8:53 AM CDT 5 025 Discontin ued(Reord er) Encounters Date Type Department Care Team Description 01/08/2025 External Device Data [facility] ABSTRACTION Provider, Abstract from Last 3 Months Social History Tobacco Use Types Packs/Day Years [...]
== END 2025-03-20 11:32 | disposition home or self-care (01) ==
PROVIDERS: PCP Student in an Organized Health Care Education/Training Program; Visit Provider Internal Medicine Gastroenterology
PROC: 0DJD8ZZ Inspection of Lower Intestinal Tract, Via Natural or Artificial Opening Endoscopic (ICD-10-PCS; CPT 45378; principal; 2025-03-20 14:30)
DX: Z12.11 Encounter for screening for malignant neoplasm of colon (principal); D12.0 Benign neoplasm of cecum; D12.3 Benign neoplasm of transverse colon; K64.8 Other hemorrhoids; K57.30 Diverticulosis of large intestine without perforation or abscess without bleeding; E78.2 Mixed hyperlipidemia; I10 Essential (primary) hypertension; I25.10 Atherosclerotic heart disease of native coronary artery without angina pectoris; R73.03 Prediabetes; M43.06 Spondylolysis, lumbar region; Z79.82 Long term (current) use of aspirin; Z79.02 Long term (current) use of antithrombotics/antiplatelets; Z98.890 Other specified postprocedural states; Z90.5 Acquired absence of kidney; Z95.5 Presence of coronary angioplasty implant and graft; Z95.1 Presence of aortocoronary bypass graft; Z82.49 Family history of ischemic heart disease and other diseases of the circulatory system
CPT/HCPCS: 45385; 88305; J2003; J2704; J7120

== ENCOUNTER 2025-05-09 07:45 | Outpatient (CLI) | payer MEDICARE, SELFPAY ==
--- OUTSIDE RECORDS SUMMARY | 2025-05-09 07:59 | XMS_ITS | Clinical Summary ---
Author Organization [facility] Address [address] [place] [address] Care Team Providers Care Medical Billing Assistant Name Role Phone Zofia Delacruz MD Primary Care Provider [phone] Rancho Sebastian MD Unavailable [phone] Allergies Active Allergy Reactions Criticality Noted Date Comments Levofloxacin Muscle pain Medium 10/14/2021 Nirmatrelvir-Ritonavir Stomach upset Low 02/02/2023 Medications aspirin 81 mg tablet take 1 tablet by oral route every day 0 0 03/04/20 13 Active Additional Information Patient taking differently:81 mgoral Every morning, Reported on 03/31/2025 MULTIVITAMIN ORALIndications:supp lement Take 1 tablet by [...] by mouth daily 90 capsule 3 09/13/19 Active carvediloL (COREG) 12.5 mg tablet Take 1 Tablet (12.5 mg) by mouth 2 times daily with meals. 180 tablet 03/20/20 25 Active clopidogreL (PLAVIX) 75 mg tablet Take 1 Tablet (75 mg) by mouth daily. 90 tablet 03/20/20 25 Active olmesartan (BENICAR) 5 mg tablet Take 1 Tablet (5 mg) by mouth 2 times daily. 180 tablet 03/20/20 25 Active rosuvastatin (CRESTOR) 40 mg tabletIndications:Co ronary arteriosclerosis in [place] artery TAKE ONE TABLET BY MOUTH ONCE DAILY 90 tablet 03/20/20 Active Active Problems Problem Noted Date Diagnosed Date Premature atrial contractions 03/31/2025 Elevated LFTs 01/30/2025 History of syncope 03/23/2023 Cardiomyopathy, ischemic 03/23/2023 Bradycardia 02/15/2022 Stricture, urethra 09/23/2021 Overview (09/23/2021): Added automatically from request for surgery [id number] Pancreatic cyst 03/05/2021 KEVIN (obstructive sleep apnea) 02/02/2021 Right renal mass 10/27/2020 S/P coronary artery stent placement 04/15/2020 Elevated blood sugar 03/19/2019 Slowing of urinary stream 09/06/2012 Hypercholesterolemia 03/19/2012 Overview (08/17/2016): PURE HYPERCHOLESTEROLEM Assessment & Plan (02/09/2017 6:47 PM CDT): POC lipids today: Total cholesterol 125, HDL 50, TG 114, LDL 52 Doing well with atorvastatin 80 mg daily Essential hypertension 03/19/2012 Overview (08/17/2016): BENIGN HYPERTENSION Assessment & Plan (02/09/2017 6:47 PM CDT): Hypertension is at goal on medical therapy History of coronary artery bypass surgery 2011 Overview (08/19/2016): AORTOCORONARY BYPASS Resolved Problems Problem Noted Date Diagnosed Date Resolved Date Liver lesion 03/05/2021 02/15/2022 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 02/02/2021 03/31/2025 Preoperative cardiovascular examination 02/02/2021 02/15/2022 Groin mass 07/15/2019 02/15/2022 Coronary stent restenosis 03/20/2019 Visit for wound check 03/04/20192020 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 01/23/2019 03/31/2025 Overview (01/23/2019): Added automatically from request for surgery [id number] Coronary arteriosclerosis in gambell artery 01/26/2016 02/02/2021 Overview (02/09/2017): July 2011: CABG x4 Later 2011: Occluded left main, occluded radial artery graft to the RCA, occluded JENI to the ramus, occluded SVG to OM2 2012: MARIBETH to RCA August 2012: Left main [...] sternum 01/26/2016 02/09/2017 Overview (08/19/2016): Sternal pain History of myocardial infarction 09/12/2012 03/31/2025 Chronic ischemic heart disease 03/19/2012 03/31/2025 Overview (08/18/2016): CHR ISCHEMIC HRT DIS NEC Exercise-induced angina 03/19/201203/15 Overview (08/19/2016): Angina effort Atherosclerosis of coronary artery bypass graft 03/19/2012 03/31/2025 Overview (08/19/2016): COR RETA RIGGS CATIA Encounters Date Type Department Care Team Description 05/01/2025 12:30 PM FLEET ADMINISTRATOR Lab [facility] [id number] [place] [address] Elevated LFTs 05/01/2025 11:05 AM FLEET ADMINISTRATOR - 05/01/2025 11:59 PM FLEET ADMINISTRATOR Hospital Encounter [facility] [address] [place] [address] Pancreatic cyst Discharge Disposition: Discharge to home or self care 05/01/2025 Results Follow-Up [facility] [address] [facility] [address] [place] [address] Eri Miner RN MRI Abdomen MRCP W WO Contrast Incl 3D 04/04/2025 10:30 AM FLEET ADMINISTRATOR Ancillary Procedure [facility] [address] [place] [address] [place] [id number] Premature atrial contractions 03/31/2025 9:00 AM FLEET ADMINISTRATOR Office Visit [facility] [address] [place] [address] [address] [place] [address] Sridhar Mckeon MD History of coronary artery bypass surgery (Primary Dx); S/P coronary artery stent placement; Cardiomyopathy, ischemic; Bradycardia; Hypercholesterolemia ; Essential hypertension; Premature atrial contractions 03/04/[address] [facility]iology at [address] [place] [id number] Provider, MD Aurelia from Last 3 Months Immunizations Immunization Administration Dates Next Due Influenza, Quad, Adjuvantated, Intramuscular 10/ ,02/25/2022 Influenza, Quadrivalent, Hig h Dose, Preservative [...] artery disease Hypertension Hyperlipidemia Cataract Clotting disorder 2011 Heart disease 2011 Angina pectoris Kidney stone Thoracic spinal cord [...] on file Legal Sex Male 10:10 AM FLEET ADMINISTRATOR Gender Identity Male 08/15/2023 12:54 PM CDT Sexual Orientation Not on file Last Filed Vital Signs Vital Sign Reading Time Taken Comments Blood Pressure 138/82 03/31/2025 8:59 AM FLEET ADMINISTRATOR Pulse 53 03/31/2025 8:59 AM FLEET ADMINISTRATOR Temperature 36.6 C (97.9 F) 10/05/2024 5:10 PM CDT Respiratory Rate 18 10/05/2024 5:10 PM CDT Oxygen Saturation 98% 03/31/2025 8:59 AM FLEET ADMINISTRATOR Inhaled Oxygen Concentration - - Weight 73.5 kg (162 lb 1.6 oz) 03/31/2025 8:59 A M FLEET ADMINISTRATOR Height 170.2 cm (5' 7) 03/31/2025 8:59 AM FLEET ADMINISTRATOR Body Mass Index 25.39 03/31/2025 8:59 AM FLEET ADMINISTRATOR Plan of Treatment Health Maintenance Due Date Last Done Comments Depression Screening 1950 Hepatitis C Screening 1950 Hepatitis B Screening 01/21/1966 Zoster Vaccine (1 of 2) 01/21/1998 Well Visit 65+ 01/21/2013 Fall Risk Assessment 10/22/2022 10/22/2021 Covid-19 Vaccine (2024-2 6 season) 2025 02/24/2024, 04/28/2023, 02/25/2022, Additional history exists Influenza Vaccine (#1) 2025 , 02/24/2024, 02/24/2023, Additional history exists DTaP/Tdap/Td Vaccine (2 - Td or Tdap) 10/05/2034 10/05/2024 Pneumococcal vaccine 65+ Completed 06/14/2017, 0806/2015 Medical Devices Implanted Type Area Pvc Loader Device Identifier Shelf Expiration Date Model / Serial / Lot [employer] X [id number] Resolute [place] 3mm 2.1-2.7fr 18mm 140cm Rapid Exchange Radiopaque - [id number] - [id number] Implanted:Qty: 1 on 02/25/2019 by Tan Pagan MD PhD at [facility] Stent N/A: Heart [employer] Inc 11/06/2020 [id number] [id number] / [id number] / [id number] [employer] X [id number] Resolute [place] 3.5mm 2.1-2.7fr 15mm 140cm Rapid Exchange - [id number] Implanted:Qty: 1 on 01/27/2020 by Tan Pagan MD PhD at [facility] Stent [employer] Inc 07/31/2021 [id number] [id number] / / [id number] [employer] X [id number] Resolute [place] 3mm 2.1-2.7fr 22mm 140cm Rapid Exchange Radiopaque - [id number] Implanted:Qty: 1 on 01/27/2020 by Tan Pagan MD PhD at [facility] Stent [employer] Inc 11/02/2021 [id number] 2UX / / [id number] Rt Total Knee Arthroplasty Knee [employer]ig [employer] [id number] Angio-Seal Evolution 8fr .038in Guidewire Bypass Tube Suture - [id number] Implanted:Qty: 1 on 02/25/2019 by Tan Pagan MD PhD at [facility] N/A: Arterial [employer] 12/13/2019 [id number] / / [id number] Procedures Procedure Name Priority Date/Time Associated Diagnosis Comments EGFR Routine 05/01/2025 12:37 PM FLEET ADMINISTRATOR Elevated LFTs COMPREHENSIVE METABOLIC PANEL Routine 05/01/2025 12:37 PM FLEET ADMINISTRATOR Elevated LFTs MRI ABDOMEN MRCP W WO CONTRAST Schedule Routine, Read Routine (OP Routine) 05/01/2025 12:03 PM FLEET ADMINISTRATOR Pancreatic cyst EXTENDED/[facility] HOLTER PATCH (>48 HOURS UP TO 7 DAYS) Routine 04/04/2025 10:33 AM FLEET ADMINISTRATOR Premature atrial contractions ELECTROCARDIOGRAM REPORT Routine 03/31/2025 1:58 PM FLEET ADMINISTRATOR Bradycardia from Last 3 Months Results * (ABNORMAL) eGFR (05/01/2025 12:37 PM FLEET ADMINISTRATOR) eGFR 57(L) >=60 mL/min/1. 73 m2 Comment: Interpretive Data Reference Interval Normal >/= 90 mL/min/1.73m2 Mildly decreased* 60 - 89 mL/min/1.73m2 Mildly to moderately decreased 45 - 59 mL/min/1.73m2 Moderately to severely decreased 30 - 44 mL/min/1.73m2 Severely decreased 15 - 29 mL/min/1.73m2 Kidney Failure < 15 mL/min/1.73m2 *Relative to young adult level Estimated glomerular filtration rate is determined by the 2020 CKD-EPI equation recommended by the National Kidney Foundation (A Unifying Approach to GFR Estimation: Recommendations of the NKF-ASK Task Force on Reassessing the Inclusion of Race in Diagnosing Kidney Disease, JASN 2020). The CKD-EPI equation should not be used for patients with unstable renal function and has not been validated in children and those over 70. Current interpretive data was last reviewed 2021. Blood 05/01/2025 12:3 7 PM FLEET ADMINISTRATOR 05/01/2025 1:37 PM FLEET ADMINISTRATOR us Adri Iyer NP LAB BLOOD ORDERABLES Patt morales Result [facility] [address] [facility]. [place] [address] * Comprehensive metabolic panel (05/01/2025 12:37 PM FLEET ADMINISTRATOR) Sodium 141 135 - 145 mmol/L Potassium, pl 4.3 3.3 - 4.9 mmol/L CERNER W Chloride 104 97 - 110 mmol/L CERNER W CO2 28 22 - 32 mmol/L CERNER [facility] Anion gap 9 2 - 15 mmol/L CERNER W BUN 19 6 - 25 mg/dL CERNER W Creatinine 1.30 0.80 - 1.30 mg/dL CERNER [facility] Glucose 108 70 - 199 mg/dL CERNER [facility] Comment: Interpretive Data Fasting glucose >/= 126 mg/dl is diagnostic for diabetes. Fasting is defined as no caloric intake for at least 8 hours. Fasting glucose between 100 mg/dl to 125 mg/dl is diagnostic of prediabetes. In a patient with classic symptoms of hyperglycemia or hyperglycemic crisis, a random glucose >/= 200 mg/dl is diagnostic for diabetes. In the absence of unequivocal hyperglycemia, results should be confirmed by repeat testing. The classification and Diagnosis of Diabetes Diabetes Care 202; 46: S19-S40. Calcium 9.2 8.5 - 10.3 mg/dL CERNER [facility] Bilirubin, total 1.2 0.1 - 1.2 mg/dL CERNER [facility] Protein, pl 6.7 6.5 - 8.5 g/dL CERNER [facility] Albumin 4.3 3.5 - 5.0 g/dL CERNER [facility] Alk phos 53 40 - 130 Units/L CERNER [facility] ALT 39 7 - 55 Units/L CERNER [facility] AST 37 10 - 50 Units/L CERNER [facility] Blood 05/01/2025 12:3 7 PM FLEET ADMINISTRATOR 05/01/2025 1:37 PM FLEET ADMINISTRATOR us Adri Iyer NURSE'S AIDES TEACHER LAB BLOOD ORDERABLES Patt morales Result [facility] [address] [facility]. [place] [address] * MRI Abdomen MRCP W WO Contrast Incl 3D (05/01/2025 12:03 PM FLEET ADMINISTRATOR) Anatomical Region Laterality Modality Body N/A Magnetic Resonan ce 05/01/2025 12:4 4 PM FLEET ADMINISTRATOR Impressions 05/01/2025 12:44 PM FLEET ADMINISTRATOR 1. 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 No main duct dilatation or solid parenchymal mass. Continued follow-up advised. 2. Stable postoperative changes from right partial nephrectomy. Electronically signed by: Farhat Mcfadden M.D. Narrative 05/01/2025 12:44 PM FLEET ADMINISTRATOR EXAMINATION: 1. MAGNETIC RESONANCE IMAGING OF THE ABDOMEN WITH AND WITHOUT CONTRAST 2. THREE DIMENSIONAL RECONSTRUCTION OF THE BILIARY TREE AND PANCREATIC DUCT HISTORY: Pancreatic cystic lesions TECHNIQUE: Magnetic resonance imaging of the abdomen was performed prior to and following the administration of intravenous contrast. The raw data was processed on the scanner by the technologist for 3 dimensional reconstructions of the intrahepatic ducts, extrahepatics ducts, and pancreatic duct. Protocol: Liver MRCP Contrast: Dotarem (gadoterate) 14 mL COMPARISON: 12/21/2021 FINDINGS: Liver: No significant steatosis or iron deposition. No surface nodularity - Bile ducts: No biliary dilatation - Focal liver lesions: Unchanged mildly T2 hyperintense enhancing lesion in hepatic segment 4, which could reflect FNH or a flash filling hemangioma. No new suspicious hepatic lesion - Vasculature: Patent portal and hepatic veins Gallbladder: Cholelithiasis without cholecystitis Pancreas: Cystic lesion in the pancreatic head and uncinate process are not substantially changed, the largest of which is in the uncinate process measuring approximately 1.6 cm, and is multilocular and grape-like in morphology (series 26, image 36). There is no pancreatic solid mass or main pancreatic duct dilatation. Spleen: Normal Adrenals: Normal Kidneys: Stable postoperative changes from right upper pole partial nephrectomy without evidence of local recurrence. Multiple additional cysts are seen in both kidneys. No hydronephrosis or suspicious renal lesion. Other Findings: No suspicious osseous lesion. No upper abdominal lymphadenopathy or ascites Procedure Note Farhat Mcfadden MD - 05/01/2025 EXAMINATION: 1. MAGNETIC RESONANCE IMAGING OF THE ABDOMEN WITH AND WITHOUT CONTRAST 2. THREE DIMENSIONAL RECONSTRUCTION OF THE BILIARY TREE AND PANCREATIC DUCT HISTORY: Pancreatic cystic lesions TECHNIQUE: Magnetic resonance imaging of the abdomen was performed prior to and following the administration of intravenous contrast. The raw data was processed on the scanner by the technologist for 3 dimensional reconstructions of the intrahepatic ducts, extrahepatics ducts, and pancreatic duct. Protocol: Liver MRCP Contrast: Dotarem (gadoterate) 14 mL COMPARISON: 12/21/2021 FINDINGS: Liver: No significant steatosis or iron deposition. No surface nodularity - Bile ducts: No biliary dilatation - Focal liver lesions: Unchanged mildly T2 hyperintense enhancing lesion in hepatic segment 4, which could reflect FNH or a flash filling hemangioma. No new suspicious hepatic lesion - Vasculature: Patent portal and hepatic veins Gallbladder: Cholelithiasis without cholecystitis Pancreas: Cystic lesion in the pancreatic head and uncinate process are not substantially changed, the largest of which is in the uncinate process measuring approximately 1.6 cm, and is multilocular and grape-like in morphology (series 26, image 36). There is no pancreatic solid mass or main pancreatic duct dilatation. Spleen: Normal Adrenals: Normal Kidneys: Stable postoperative changes from right upper pole partial nephrectomy without evidence of local recurrence. Multiple additional cysts are seen in both kidneys. No hydronephrosis or suspicious renal lesion. Other Findings: No suspicious osseous lesion. No upper abdominal lymphadenopathy or ascites IMPRESSION: 1. 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 No main duct dilatation or solid parenchymal mass. Continued follow-up advised. 2. Stable postoperative changes from right partial nephrectomy. Electronically signed by: Farhat Mcfadden M.D. Adri Iyer NURSE'S AIDES TEACHER IMG MRI PROCEDURES Final Result * Extended/Senior Care Holter Patch (>48 hours up to 7 days) (04/04/2025 10:33 AM FLEET ADMINISTRATOR) Anatomical Region Laterality Modality Electrocardiogra phy Narrative 04/21/2025 10:30 AM FLEET ADMINISTRATOR AMBULATORY CLEANING TECHNICIAN REPORT Patient Name: Nirmal Rivers Date of : 1950 Requesting Physician: Dr Mckeon Date of interpretation: 04/21/25 Type of monitor : 3 day Holter monitor Date of the study/Enrollment period: April 04 in April 07, 2025 Indication: Atrial premature depolarization Quality of the study: Artifact time was 8 hours. Interpretation: Average heart rate was 66 beats per minute with a minimum heart rate 49 beats per minute and maximum heart rate 140 beats per minute. No evidence of atrial fibrillation, ventricular tachycardia or significant pauses or blocks. One episode of supraventricular tachycardia consistent of 3 beats at heart rate 117 beats per minute. [place] of PVCs less than 1% and burden of supraventricular ectopic contractions was 14%. Patient was asymptomatic during the monitoring time. Conclusions: Frequent supraventricular ectopic contractions. No evidence of Afib. Voice recognition software was used to complete this document, therefore, strategic marketing specialist variances may occur. Sridhar Mckeon MD, [facility] 04/21/25 Sridhar Mckeon MD [facility] PROCEDURES Final Result * Electrocardiogram Report (03/31/2025 1:58 PM FLEET ADMINISTRATOR) Sridhar Mckeon MD ECG ORDERABLES Patt l Result from Last 3 [place] [address] [place] [address] [place] [address] UHC MEDICARE ADVANTAGE [facility] Address: [address] [address] [place] [address] MEDICARE [facility] MEDICARE Advance Directives For more information, please contact: [phone] Documents on File Type Date Recorded Patient Proposal Manager Expl anation ADVANCE DIRECTIVE 02/12/2021 10:02 AM Fernanda r of Chinese Medicine Practitioner-Medical * Full Code (Latest Code Status on File) Date Activated Date Inactivated Comments 02/12/2021 6:05 PM 02/14/2021 6:52 PM * Full Code Date Activated Date Inactivated Comments 01/27/2020 3:37 PM 01/27/2020 11:01 PM * Full Code Date Activated Date Inactivated Comments 02/25/2019 5:10 PM 02/25/2019 10:38 PM Care Teams Medical Billing Assistant Relationship Specialty Start Date End Date Zofia Delacruz MD PCP - General 08/12/16 Rancho Sebastian MD Consulting Physician Urology 10/22/21
== END 2025-05-09 07:46 | disposition home or self-care (01) ==
LOC: ANHAUDASC 07:57
DX: H90.3 Sensorineural hearing loss, bilateral (principal); Z97.4 Presence of external hearing-aid
CPT/HCPCS: 92557; 92567